=== PATIENT | female | born 2005 | race Caucasian/White ===

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

== ENCOUNTER 2024-01-09 14:11 | Observation (INO) | payer BC, MEDICAID, SELFPAY ==
[2024-01-09] VITALS (17 sets, daily range): BP systolic 97–166; BP diastolic 57–117; PULSE 80–165; RESP 7–25; TEMP 36.6–36.9; O2SAT 92–99; BMI 34.8
--- NOTE | 2024-01-09 14:36 | ECG_ITS ---
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 Measurements Intervals Streeter Rate: 145 P: 39 NE: 113 QRS: 52 QRSD: 92 T: 40 QT: 330 QTc: 514 Interpretive Statements SINUS TACHYCARDIA WITH SHORT NE INTERVAL, POSSIBLE ATRIAL FLUTTER ABNORMAL RHYTHM ECG Compared to ECG 12/18/2023 07:45:33 No significant changes Electronically Signed On 01-09-2024 20:05:16 PODIATRIST by Yon Talley M.D. [email or web address]
--- NOTE | 2024-01-09 14:36 | ED_ITS ---
HPI - Arrhythmia/Palpitations 2 General: Chief Complaint: Arrhythmia/Palpitations Stated Complaint: high heart rate Time Seen by Provider: 01/09/24 14:27 Source: patient Mode of arrival: ambulatory History of Present Illness: 19-year-old female who presents to the e mergency room with a rapid heart rate she has had SVT issues in the past been admitted from she also has diabetes mellitus hypertension. She is wearing a loop recorder at this time she woke up with her symptoms this morning no significant chest pain. She is on metoprolol she has been taking regularly has not missed any doses or change the dose recently MD complaint: rapid heart beat Onset (ago): hour(s) Duration: constant Arrhythmia history: SVT Associated symptoms: Deny anxiety, cough, diaphoresis, muscle cramps, nausea, paresthesias, pre-syncope, sense of impending doom, short of breath, syncope or vomiting Review of Systems 2 Const: Denies: diaphoresis Card: Reports: palpitations; Denies: chest pain, edema, swelling of feet/ankles, syncope or pre-syncope Resp: Denies: dyspnea GI: Denies: nausea or vomiting : Denies: dysuria, urinary frequency or urinary urgency Musc: Denies: muscle cramps Skin/Breast: Denies: rash Psych: Denies: anxiety PFSH ED 2 PFSH: Medical History (Updated 01/12/24 @ 16:17 by Feliciano Butler DO) Tachyarrhythmia Family history of porphyria Family history of [place] disease Irritable bowel syndrome Fatty liver Type 2 diabetes mellitus Surgical History History of appendectomy Family History Mother Colon cancer, Onset Age: 40 Other [place] disease Diabetes Hypertension Social History Smoking and tobacco/nicotine status: never used tobacco/nicotine Alcohol intake: never Substance/Drug Use: never Household members: significant other Physical Exam 2 Const: GENERAL APPEARANCE: cooperative and comfortable O RIENTATION/CONSCIOUSNESS: Yes awake, Yes oriented to person, Yes oriented to place and Yes oriented to time HENMT: COMMON NORMALS: normocephalic, atraumatic and hearing grossly normal bilaterally HEAD & SCALP: normocephalic and atraumatic Resp: COMMON NORMALS: normal respiratory effort, No retractions, No use of accessory muscles and clear to auscultation bilaterally AUSCULTATION: clear to auscultation bilaterally Cardio: COMMON NORMALS: regular rhythm and No murmurs present (Cardio) R ATE: tachycardic RHYTHM: regular rhythm GI: COMMON NORMALS: Soft to palpation and No hepatosplenomegaly present A USCULTATION: Yes normoactive bowel sounds PALPATION: Yes Soft to palpation, No Tenderness to palpation present (GI), No Guarding due to palpation present (GI) and Yes No hepatosplenomegaly present Extremity: COMMON NORMALS: normal to inspection, capillary refill normal, no clubbing, cyanosis or edema, no calf tenderness and no pedal edema Neuro: SENSORIUM/ORIENTATION: Yes oriented to person, Yes oriented to place and Yes oriented to time Skin: COMMON NORMALS: no rashes or lesions noted GENERAL SKIN EXAM: no rashes or lesions noted Course 2 Vital Signs: Vital signs: Vital Signs Temperature 98.5 F 01/10/24 07:00 Pulse Rate 78 01/10/24 12:35 Respiratory Rate 12 01/10/24 12:35 Blood Pressure 120/72 01/10/24 12:35 Pulse Oximetry 96 01/10/24 12:35 Oxygen Delivery Me thod Room Air 01/10/24 10:00 MDM - Arrhythmia/Palpitations Medical Decision Making Recurrent SVT. Patient did slow down for a bit and then rate increased again started on esmolol drip. The metoprolol did not last long. Labs and imaging completed discussed with hospitalist orders written Medical Records I reviewed the patient's medical records. Lab Data I reviewed the patient's lab results. 01/10/24 03:46 01/10/24 03:46 Laboratory Results WBC 9.15 10^3/uL (4.5-13.0) 01/09/24 14:57 RBC 5.45 10^6/uL (3.85-5.65) 01/09/24 14:57 Hgb 15.80 g/dL (12.4-14.8) H 01/09/24 14:57 Hct 45.3 % (36-47) 01/09/24 14:57 MCV 83.1 fl (85-98) L 01/09/24 14:57 MCH 29.0 pg (27-33) 01/09/24 14:57 MCHC 34.9 g/dL (30-55) 01/09/24 14:57 RDW 12.3 % (12.1-15.1) 01/09/24 14:57 Plt Count 354 10^3/cmm (157-399) 01/09/24 14:57 MPV 9.4 fL (7.4-10.4) 01/09/24 14:57 Neut % (Auto) 69.1 % 01/09/24 14:57 Lymph % (Auto) 21.9 % 01/09/24 14:57 [place] % (Auto) 6.8 % 01/09/24 14:57 Eos % (Auto) 1.0 % 01/09/24 14:57 Baso % (Auto) 0.8 % 01/09/24 14:57 Neut # (Auto) 6.33 10^3/uL (1.8-8.0) 01/09/24 14:57 Lymph # (Auto) 2.0 10^3/uL (1.5-6.5) 01/09/24 14:57 [place] # (Auto) 0.6 10^3/uL (0.2-0.9) 01/09/24 14:57 Eos # (Auto) 0.1 10^3/uL (0.0-0.8) 01/09/24 14:57 Baso # (Auto) 0.1 10^3/uL (0.0-0.1) 01/09/24 14:57 Nucleated RBC % (auto) 0 % 01/09/24 14:57 Nucleated RBCs # 0.0 /100WBC 01/09/24 14:57 Sodium 133 mmol/L (136-145) L 01/09/24 14:57 Potassium 3.7 mmol/L (3.5-5.1) 01/09/24 14:57 Chloride 99 mmol/L (98-107) 01/09/24 14:57 Carbon Dioxide 17 mmol/L (22-29) L 01/09/24 14:57 Anion Gap 20.7 (5-19) H 01/09/24 14:57 BUN 8 mg/dL (6-20) 01/09/24 14:57 Creatinine 0.4 mg/dL (0.5-0.9) L 01/09/24 14:57 GFR Calculation 203.5 mL/min (90-130) H 01/09/24 14:57 Glucose 412 mg/dL (65-115) H 01/09/24 14:57 POC Glucose 394 mg/dL (70-110) H 01/09/24 15:02 Calculated Osmolality 292 mOsm/kg (285-295) 01/09/24 14:57 Calcium 8.6 mg/dL (8.5-10.5) 01/09/24 14:57 Total Bilirubin 0.4 mg/dL (0.15-1.2) 01/09/24 14:57 AST 7 U/L (0-32) 01/09/24 14:57 ALT 12 U/L (0-33) 01/09/24 14:57 Alkaline Phosphatase 137 U/L (35-105) H 01/09/24 14:57 Total Protein 7.4 g/dL (6.6-8.7) 01/09/24 14:57 Albumin 4.0 g/dL (3.5-5.2) 01/09/24 14:57 Globulin 3.4 g/dL (1.3-4.6) 01/09/24 14:57 Vitamin B12 364 pg/mL (232-1245) 01/09/24 14:57 Serum Ketones Negative (Negative) 01/09/24 14:57 All radiology interpretation(s) finalized by discharge Discharge Plan Discharge Patient Disposition: Admitted As Inpatient Admit Provider: Ravi Sharma Clinical Impression: Tachyarrhythmia Condition: Stable Discharge Diet: Cardiac and Diabetic Discharge Activity: Resume usual activity and Increase activity as tolerated Coding Level of Care Code ED Incident Response Specialist for Candy Chatterjee
--- NOTE | 2024-01-09 14:36 | XR_ITS ---
WS: [id number] Examination: XR chest 1V portable [id number] Reason for Exam: dyspnea/cough Date: 01/09/2024 Comparison: December 16, 2023 Findings: The cardiomediastinal silhouette is within normal limits There is no congestion or edema. There is no pleural effusion. There is no dense consolidation. Monitoring devices projected over the upper mid chest. Impression: No acute lung process is seen.
[2024-01-09] MEDS: metoprolol tartrate 1 mg/1 mL SDV 5 mL 5 MG IVP (14:46)
[2024-01-09] MEDS: sodium chloride 0.9% 1,000 ML 999 ML IV (14:47)
[2024-01-09 15:06] LABS: Glucose Point of Care 394 mg/dL (70-110)
[2024-01-09 15:14] LABS: Basophils # 0.1 10^3/uL (0.0-0.1); Basophils % 0.8 %; Eosinophils # 0.1 10^3/uL (0.0-0.8); Hematocrit 45.3 % (36-47); Lymphocytes % 21.9 %; Mean Corpuscular HGB Conc 34.9 g/dL (30-55); Mean Corpuscular Volume 83.1 fl (85-98); Mean Platelet Volume 9.4 fL (7.4-10.4); Monocytes # 0.6 10^3/uL (0.2-0.9); Monocytes % 6.8 %; Neutrophils # 6.33 10^3/uL (1.8-8.0); Neutrophils % 69.1 %; Nucleated Red Blood Cells % 0 %; Platelet Count 354 10^3/cmm (157-399); Red Blood Count 5.45 10^6/uL (3.85-5.65); Red Cell Distribution Width 12.3 % (12.1-15.1); White Blood Count 9.15 10^3/uL (4.5-13.0)
[2024-01-09] MEDS: insulin regular-human 100 units/1 mL 17 UNIT IVP (15:27)
[2024-01-09 15:33] LABS: Ketone (Acetest) Serum Negative (Negative)
[2024-01-09 15:39] LABS: Alanine Aminotransferase 12 U/L (0-33); Alkaline Phosphatase 137 U/L (35-105); Anion Gap 20.7 (5-19); Aspartate Amino Transferase 7 U/L (0-32); Blood Urea Nitrogen 8 mg/dL (6-20); Calcium 8.6 mg/dL (8.5-10.5); Carbon Dioxide 17 mmol/L (22-29); Chloride 99 mmol/L (98-107); Creatinine Clr Calc Pharmacy 311.0972; Globulin 3.4 g/dL (1.3-4.6); Glomerular Filtration Rate 203.5 mL/min (90-130); Glucose 412 mg/dL (65-115); Osmolality Calculated 292 mOsm/kg (285-295); Potassium 3.7 mmol/L (3.5-5.1); Sodium 133 mmol/L (136-145); Total Bilirubin 0.4 mg/dL (0.15-1.2); Total Protein 7.4 g/dL (6.6-8.7)
[2024-01-09] MEDS: esmolol drip 2,500 MG/250 ML PREMIX 34.0200000000000031 MG IV (16:01)
[2024-01-09 16:50] LABS: Glucose Point of Care 309 mg/dL (70-110)
--- NOTE | 2024-01-09 17:05 | P.HP_ITS ---
Providers/Chief Complaint 2 Primary Care Provider: Patrica Baron NP Chief Complaint: high heart rate History of Present Illness Marbella Coronel is a 19 year old female with history of uncontrolled type 2 diabetes mellitus with last A1c of 12 in November 2023, last admission a month ago for tachycardia when she was found to have SVT and was discharged on event monitor presents back to the ER today because of heart rate not controlled by her Valsalva maneuver. Patient states she has an event monitor and since her last discharge she has had episodes of tachycardia twice or thrice which would usually be managed with Valsalva but today she was not able to control her heart rate for more than couple of hours so she presented to the ER. Patient states she has been feeling sick with mild nausea since last night. She takes Lantus to 40 units twice daily along with insulin as per sliding scale. Usually blood sugars well-controlled but have been erratic with some blood sugars running for more than 300 every week. She is supposed to have an appointment with schedule maker in [place] in January and with Dr. Talley from cardiology on February 08. In the ER patient received 5 mg of IV metoprolol without any help so she was started on esmolol drip. On examination she is laying in bed, tired appearing, dehydrated with heart rate running in 110 bpm. Blood pressure stable. Review of Systems 2 General: Reports: 10 or more systems reviewed and unremarkable except in HPI and below Const: Denies: fever(s), chills, body aches, change in appetite, change in weight, malaise, night sweats, diaphoresis, change in sleep pattern, daytime sleepiness or snoring Eyes: Denies: change in vision, blurry vision, photophobia, eye discomfort or eye discharge ENMT: Denies: throat pain, enlarged tonsils, hoarseness, mouth pain, oral sores, dry mouth, tinnitus, nasal congestion or post nasal drip Card: Denies: chest pain, palpitations, irregular heart rhythm, edema, swelling of feet/ankles, lightheadedness, syncope, pre-syncope, dyspnea on exertion, orthopnea, leg pain with exertion or acrocyanosis Resp: Denies: dyspnea, productive cough, non-productive cough, wheezing, stridor, pain on inspiration, change in phlegm color, hemoptysis or chest congestion GI: Denies: abdominal pain, nausea, vomiting, hematemesis, coffee ground emesis, dysphagia, heartburn, diarrhea, constipation, bloating, GI cramping, change in bowel habits, pain on defecation, hematochezia or melena : Denies: flank pain, dysuria, urinary frequency, urinary urgency, urinary hesitancy, nocturia or hematuria Musc: Denies: neck pain, back pain, extremity pain, joint pain, joint swelling, joint redness, joint stiffness or limited range of motion Neuro: Denies: headache(s), numbness in extremities, weakness in extremities, sensory changes, lack of coordination, difficulty walking, frequent falls, dizziness, vertigo, confusion, Slurred speech present, difficulty communicating thoughts or seizure-like activity Psych: Denies: anxiety, depression, mood swings, panic attacks, hopelessness or irritability Endo: Denies: polyuria, polydipsia, tired all the time, cold intolerance, excessive sweating, flushing or heat intolerance [place]/Lymph: Denies: easy bruising or easy bleeding All/Imm: Denies: tongue swelling, facial swelling or acute wheezing Medications/Allergies Home Medications Medication Instructions Recorded Confirmed Last Taken Type lancets (Comfort Lancets) #100 ea 08/22/22 01/09/24 Unknown Rx blood-glucose meter #1 ea 01/30/23 01/09/24 Unknown Rx pen needle, diabetic 33 gauge x #100 ea 04/24/23 01/09/24 Unknown Rx 5/32 (Easy Comfort Pen [place]) blood sugar diagnostic (Blood #50 ea 05/24/23 01/09/24 Unknown Rx Glucose Test strips) insulin aspart U-100 100 unit/mL See Rx Instructions .Route 06/03/23 01/09/24 01/09/24 Rx (3 mL) subcutaneous pen (Novolog .COMPLEX #15 mL FlexPen U-100 Insulin aspart) metoprolol succinate 25 mg 25 mg PO DAILY #30 tabs 12/18/23 01/09/24 01/09/24 Rx tablet,extended release 24 hr (Toprol XL) dicyclomine 20 mg tablet 20 mg PO QID 01/09/24 01/09/24 01/09/24 History insulin glargine 100 unit/mL (3 40 unit SUBCUT BID 01/09/24 01/09/24 01/09/24 History mL) subcutaneous pen (Lantus Solostar U-100 Insulin) metformin 500 mg tablet 500 mg PO BID 01/09/24 01/09/24 01/09/24 History Allergies Allergy/AdvReac Type Severity Reaction Status Date / Time No Known Allergies Allergy Verified 01/09/24 15:05 PFSH Acute 2 PFSH: Medical History (Updated 01/10/24 @ 10:43 by Ravi Sharma MD) Tachyarrhythmia Family history of porphyria Family history of [place] disease Irritable bowel syndrome Fatty liver Type 2 diabetes mellitus Surgical History History of appendectomy Family History Mother Colon cancer, Onset Age: 40 Other [place] disease Diabetes Hypertension Social History Smoking and tobacco/nicotine status: never used tobacco/nicotine Alcohol intake: never Substance/Drug Use: never Household members: significant other Vitals/I&O/Wt Last Vital Signs Temp 97.9 F 01/09/24 14:21 Pulse 107 H 01/09/24 16:21 Resp 17 01/09/24 14:21 BP 119/70 01/09/24 16:21 Pulse Ox 99 01/09/24 16:21 O2 Del Method Room Air 01/09/24 16:21 Weight last 48 hrs Weight 113.398 kg Physical Exam 2 Narrative: General: No acute distress, AO x3, anxious with a flat affect HEENT: PERRLA, pupils bilaterally equal and reactive Chest: Normal vesicular breath sounds, no added sounds, equal good air entry bilaterally CVS: S1-S2 regular, no murmurs, tachycardia, no gallops, no rubs Abdomen: Soft, nontender, no organomegaly, bowel sounds present Neuro: No focal deficits, no facial deformity, AO x3, power 5/5 in all limbs Data 01/10/24 03:46 01/10/24 03:46 A&P Assessment and plan (1) Tachyarrhythmia: History of SVT before. Currently concern for atrial tachycardia. Currently on esmolol drip. Increase home dose of metoprolol to 50 mg twice daily with first dose right now. Wean esmolol drip of keeping heart rate less than 100. Will consult cardiology. Patient will most likely need referral for electrophysiology. Admit to ICU. Monitor blood pressures. Start on IV fluids normal saline at 100 cc/h. (2) Type 2 diabetes mellitus: A1c recently 12. Patient believes her blood sugars are erratic and uncontrolled because of insulin resistance secondary to her control. Last control was in November. Increase insulin sliding scale to higher dose. Lantus 45 units twice daily. Carb consistent diet (3) BMI 35.0-35.9,adult: Plan Admit to ICU. Full code Carb consistent diet Protonix OPD prophylaxis Attestations 2 Medical Necessity Statement*: Requires admission for more than 2 midnights for management of tachyarrhythmia with concerns for atrial tachycardia on esmolol drip, uncontrolled type 2 diabetes mellitus Diagnoses Tachyarrhythmia R00.0 Type 2 diabetes mellitus E11.9 BMI 35.0-35.9,adult Z68.35
[2024-01-09] MEDS: metoprolol tartrate 25 mg Tablet 50 MG PO ×2 (17:47→21:01)
--- NOTE | 2024-01-09 18:20 | PC.NURSE ---
Pt admitted to ICU from ED. Monitor shows sinus rhythm. Esmolol drip infusing at 50mcg/kg/min. Pt offered tray, she refused. She asked if was ok if her SO brought her in [place] food. This nurse said it was ok as long as it followed consistent carb/diabetic diet., but not recommended. Reminded her of her elevated blood sugar, [place] food is full of carbohydrates and that More protein and vegetables would be better. She verbalized understanding.
[2024-01-09 19:06] LABS: Glucose Point of Care 295 mg/dL (70-110)
[2024-01-09 19:07] LABS: Vitamin B12 364 pg/mL (232-1245)
[2024-01-09] MEDS: sodium chloride 0.9% 1,000 ML 100 ML IV (19:11)
[2024-01-09] MEDS: acetaminophen 325 mg Tablet 650 MG PO (19:11)
[2024-01-09] MEDS: pantoprazole DR 40 mg Tablet PO (19:11)
[2024-01-09] MEDS: insulin lispro 100 unit/1 mL SUBCUT ×2 (19:15→21:00)
[2024-01-09] MEDS: enoxaparin 40 mg/0.4 mL Syringe SUBCUT (19:16)
[2024-01-09] MEDS: insulin glargine 100 units/1 mL 40 UNIT SUBCUT (19:55)
[2024-01-09 20:09] LABS: Amphetamines Screen Urine Negative (Negative); Barbiturates Screen Urine Negative (Negative); Benzodiazepines Screen Urine Negative (Negative); Cocaine Screen Urine Negative (Negative); Opiate Screen Urine Negative (Negative); PCP Screen Urine Negative (Negative); THC Screen Urine Negative (Negative)
[2024-01-09 20:11] LABS: Add Urine Microscopic? YES; Bilirubin Urine Neg (Negative); Blood Urine 3+ (Negative); Glucose Urine UA 4+ (Normal); Ketones Urine 2+ (Negative); Leukocyte Esterase Urine Trace (Negative); Nitrate Urine Negative (Negative); Protein Urine 1+ (Negative); Urine Appearance Cloudy (CLEAR); Urine Color Dark Yellow (Yellow); Urobilinogen Urine Norm (Negative); pH Urine 5 (5-7)
[2024-01-09 20:14] LABS: Add Urine Culture? Yes; Bacteria Urine TRACE /hpf; RBC Urine >100 /hpf (0-2)
[2024-01-09 21:01] LABS: Glucose Point of Care 400 mg/dL (70-110)
--- NOTE | 2024-01-09 21:36 | PC.NURSE ---
monitoring and evaluation advisor shows SR with rate in the 80's. Esmolol paused.
[2024-01-10] VITALS (11 sets, daily range): BP systolic 94–123; BP diastolic 48–88; PULSE 78–101; RESP 12–22; TEMP 36.8–36.9; O2SAT 93–97
[2024-01-10 03:51] LABS: Basophils # 0.1 10^3/uL (0.0-0.1); Basophils % 0.6 %; Eosinophils # 0.2 10^3/uL (0.0-0.8); Eosinophils % 2.3 %; Hematocrit 42.2 % (36-47); Lymphocytes # 3.9 10^3/uL (1.5-6.5); Lymphocytes % 37.8 %; Mean Corpuscular HGB Conc 33.4 g/dL (30-55); Mean Corpuscular Hemoglobin 28.5 pg (27-33); Mean Corpuscular Volume 85.4 fl (85-98); Mean Platelet Volume 9.2 fL (7.4-10.4); Monocytes # 0.7 10^3/uL (0.2-0.9); Monocytes % 6.9 %; Neutrophils # 5.33 10^3/uL (1.8-8.0); Neutrophils % 52.2 %; Nucleated Red Blood Cells % 0 %; Platelet Count 301 10^3/cmm (157-399); Red Blood Count 4.94 10^6/uL (3.85-5.65); Red Cell Distribution Width 12.5 % (12.1-15.1); White Blood Count 10.23 10^3/uL (4.5-13.0)
[2024-01-10 04:16] LABS: Alanine Aminotransferase 10 U/L (0-33); Albumin Level 3.5 g/dL (3.5-5.2); Alkaline Phosphatase 97 U/L (35-105); Anion Gap 15.7 (5-19); Aspartate Amino Transferase 7 U/L (0-32); Blood Urea Nitrogen 13 mg/dL (6-20); Calcium 8.4 mg/dL (8.5-10.5); Carbon Dioxide 22 mmol/L (22-29); Chloride 103 mmol/L (98-107); Creatinine Clr Calc Pharmacy 310.9045; Globulin 2.7 g/dL (1.3-4.6); Glomerular Filtration Rate 203.5 mL/min (90-130); Glucose 265 mg/dL (65-115); Magnesium 1.8 mg/dL (1.7-2.3); Osmolality Calculated 293 mOsm/kg (285-295); Phosphorus 3.3 mg/dL (2.5-4.5); Potassium 3.7 mmol/L (3.5-5.1); Sodium 137 mmol/L (136-145); Total Bilirubin 0.4 mg/dL (0.15-1.2); Total Protein 6.2 g/dL (6.6-8.7)
[2024-01-10] MEDS: sodium chloride 0.9% 1,000 ML 100 ML IV (04:35)
--- NOTE | 2024-01-10 08:02 | P.CONIM_ITS ---
Providers/Reason For Consult 2 Consulting Physician/Specialty*: Ross Vazquez MD/ Cardiology Reason for Consult*: SVT Requesting Physician: Dr Sharma Attending Physician: Ravi Sharma MD Primary Care Provider: Patrica Baron NP History of Present Illness History of Present Illness Marbella Coronel is a 19 year old female with past medical history of diabetes who was seen last month in the hospital for SVT. She went home on metoprolol. Came significant palpitations. EKG is consistent with possible atrial tachycardia. Heart rate is controlled with beta-blockers. Review of Systems 2 Const: Denies: diaphoresis Card: Reports: palpitations; Denies: chest pain, edema, swelling of feet/ankles, syncope or pre-syncope Resp: Denies: dyspnea GI: Denies: nausea or vomiting : Denies: dysuria, urinary frequency or urinary urgency Musc: Denies: muscle cramps Skin/Breast: Denies: rash Psych: Denies: anxiety Medications/Allergies Home Medications Medication Instructions Recorded Confirmed Last Taken Type lancets (Comfort Lancets) #100 ea 08/22/22 01/13/24 Unknown Rx blood-glucose meter #1 ea 01/30/23 01/13/24 Unknown Rx pen needle, diabetic 33 gauge x #100 ea 04/24/23 01/13/24 Unknown Rx 5/32 (Easy Comfort Pen [place]) blood sugar diagnostic (Blood #50 ea 05/24/23 01/13/24 Unknown Rx Glucose Test strips) dicyclomine 20 mg tablet 20 mg PO QID 01/09/24 01/13/24 01/09/24 History metformin 500 mg tablet 500 mg PO BID 01/09/24 01/13/24 01/09/24 History insulin aspart U-100 100 unit/mL See Rx Instructions .Route 01/10/24 01/13/24 01/09/24 Rx (3 mL) subcutaneous pen (Novolog .COMPLEX #15 mL FlexPen U-100 Insulin aspart) insulin glargine 100 unit/mL (3 45 unit (0.45 mL) SUBCUT BID #15 mL 01/10/24 01/13/24 01/09/24 Rx mL) subcutaneous pen (Lantus Solostar U-100 Insulin) metoprolol tartrate 25 mg tablet 50 mg PO DAILY PRN Heart rate more 01/13/24 Unknown History than 110 bpm metoprolol tartrate 75 mg tablet 75 mg PO BID #60 tabs 01/13/24 01/13/24 Unknown Rx Allergies Allergy/AdvReac Type Severity Reaction Status Date / Time No Known Allergies Allergy Verified 01/13/24 14:29 Current Medications Generic Name Dose Route Start Last Admin Trade Name Freq PRN Reason Stop Dose Admin Acetaminophen 650 mg 01/09/24 18:14 01/09/24 19:11 Acetaminophen 325 Mg Tablet PO 650 mg Q6H PRN Administration Mild/Mod Pain Or Temp >/= 101 Enoxaparin Sodium 40 mg 01/09/24 18:14 01/09/24 19:16 Enoxaparin 40 Mg/0.4 Ml Syringe SUBCUT 40 mg Q24H CHIVO Administration Esmolol HCl 2,500 mg in 250 mls @ 0 mls/hr 01/09/24 16:00 01/09/24 21:34 Brevibloc Drip IV 0 mcg/kg/min .Q0M CHIVO 0 mls/hr Titration Protocol Per Protocol Sodium Chloride 1,000 mls @ 100 mls/hr 01/09/24 18:14 01/10/24 04:35 Sodium Chloride 0.9% IV 100 mls/hr .Q10H CHIVO Administration Insulin Glargine 40 unit 01/09/24 19:00 01/09/24 19:55 Insulin Glargine 100 Units/1 Ml SUBCUT 40 unit BID CHIVO Administration Insulin Human Lispro 0 unit 01/09/24 18:14 01/09/24 21:00 Insulin Lispro 100 Unit/1 Ml SUBCUT 12 unit WM&BEDTIME CHIVO Administration Protocol Metoprolol Tartrate 50 mg 01/09/24 17:05 01/09/24 21:01 Metoprolol Tartrate 25 Mg Tablet PO 50 mg BID@0900,2100 CHIVO Administration Pantoprazole Sodium 40 mg 01/09/24 18:14 01/09/24 19:[address] 40 Mg Tablet PO 40 mg DAILY CHIVO Administration PFSH Acute 2 PFSH: Medical History Tachyarrhythmia Family history of porphyria Family history of [place] disease Irritable bowel syndrome Fatty liver Type 2 diabetes mellitus Surgical History History of appendectomy Family History Mother Colon cancer, Onset Age: 40 Other [place] disease Diabetes Hypertension Social History Smoking and tobacco/nicotine status: never used tobacco/nicotine Alcohol intake: never Substance/Drug Use: never Household members: significant other Female Reproductive History: Date of last menstrual period: 01/05/24 Vitals/I&O/Wt Last Vital Signs Temp 98.2 F 01/10/24 04:00 Pulse 79 01/10/24 05:39 Resp 21 H 01/10/24 04:00 BP 101/49 01/10/24 04:00 Pulse Ox 94 01/10/24 04:00 O2 Del Method Room Air 01/10/24 04:00 01/09/24 01/10/24 01/10/24 22:59 06:59 14:59 Intake Total 398.554 / 771.294 6718 / 1738.554 Balance 398.554 / 894.671 0108 / 1738.554 Weight last 48 hrs Weight 256 lb Weight 249 lb 11.2 oz Weight 250 lb Physical Exam 2 Narrative: GENERAL: Patient is alert, awake and oriented x3. [] NECK: No jugular vein distension. [] HEENT: No cyanosis. No icterus. No pallor. [] HEART: Regular S1 and S2. No murmur, rub or gallop. [] LUNGS: Clear to auscultate bilaterally. [] CENTRAL NERVOUS SYSTEM: Grossly nonfocal. [] EXTREMITIES: Lower extremities with 1+ edema bilaterally Data 01/10/24 03:46 01/10/24 03:46 A&P Assessment and plan (1) Tachyarrhythmia: (2) Hypertension, uncontrolled: (3) Type 2 diabetes mellitus: Plan Patient had documented SVT before. EKG at this time is consistent with atrial tachycardia. Uptitrate beta-blockers. Continue event monitoring. Outpatient cardiology follow-up. Will refer to electrophysiology as outpatient for possible EP study and ablation procedure as has been having recurrent events Recent echo had showed normal LV systolic function Thank you for involving us with care of this patient. We will continue to follow. Please call with questions. Consult Attestations 2 Medical Necessity Statement: Care expected to cross 2 midnights. Coding Level of Care Code Acute Code for g Fwd Diagnoses Tachyarrhythmia R00.0 Hypertension, uncontrolled I10 Type 2 diabetes mellitus E11.9
--- NOTE | 2024-01-10 08:20 | PC.NURSE ---
Pt did not want the breakfast offered. She ate some of the ruiz. She called her S.O. to bring her something else.
[2024-01-10 08:24] LABS: Glucose Point of Care 320 mg/dL (70-110)
[2024-01-10] MEDS: insulin glargine 100 units/1 mL 40 UNIT SUBCUT (08:29)
[2024-01-10] MEDS: insulin lispro 100 unit/1 mL SUBCUT (08:30)
[2024-01-10] MEDS: pantoprazole DR 40 mg Tablet PO (08:32)
[2024-01-10] MEDS: metoprolol tartrate 25 mg Tablet 50 MG PO (08:32)
--- NOTE | 2024-01-10 10:27 | PM.DCS ---
Discharge Providers Date of Admission: 01/09/24 16:45 Date of Discharge: January 10, 2024 Attending Provider at Admission: Ravi Sharma MD Attending Provider at Discharge: Ravi Sharma MD Primary Care Provider: Patrica Baron NP Reason for Visit Reason for Visit: high heart rate Hospital Course Hospital Course 19-year-old female with history of uncontrolled type 2 diabetes mellitus with last A1c of 12 in November 2023, last admission a month ago for tachycardia when she was found to have SVT and was discharged on event monitor presents back to the ER today because of heart rate not controlled by her Valsalva maneuver. Patient states she has an event monitor and since her last discharge she has had episodes of tachycardia twice or thrice which would usually be managed with Valsalva but today she was not able to control her heart rate for more than couple of hours so she presented to the ER. Patient states she has been feeling sick with mild nausea since last night. She takes Lantus to 40 units twice daily along with insulin as per sliding scale. Usually blood sugars well-controlled but have been erratic with some blood sugars running for more than 300 every week. She is supposed to have an appointment with catering convention services manager in [place] in January and with Dr. Talley from cardiology on February 08. In the ER patient received 5 mg of IV metoprolol without any help so she was started on esmolol drip. On examination she is laying in bed, tired appearing, dehydrated with heart rate running in 110 bpm. Blood pressure stable. She was admitted to the hospital for further evaluation and management. She was given an extra dose of metoprolol after which esmolol drip could be weaned off. EKG from the ER was concerning for atrial tachycardia at this time. Her heart rate remained stable overnight. Patient's blood sugar was erratic for which she was given an higher dose of Lantus and a higher dose of insulin sliding scale. She was also visited by dietitian regarding diabetic diet. Cardiology was consulted. She has been discharged in hemodynamically stable condition on higher dose of metoprolol with metoprolol at a lower dose as needed along with adjusted dose of insulin and a higher insulin sliding scale. She is asked to follow-up with nurse practitioner from cardiology/Zoe Gibbons next week for referral to patient services representative. She is asked to keep a blood sugar diary and follow-up with her catering convention services manager next month. Physical Exam Narrative: General: No acute distress, AO x3, flat effect HEENT: PERRLA, pupils bilaterally equal and reactive Chest: Normal vesicular breath sounds, no added sounds, equal good air entry bilaterally CVS: S1-S2 regular, no murmurs, no tachycardia, no gallops, no rubs Abdomen: Soft, nontender, no organomegaly, bowel sounds present Neuro: No focal deficits, no facial deformity, AO x3, power 5/5 in all limbs Discharge Data Studies Completed and Pending Completed Studies During Hospitalization Category Date Time Status XR chest 1V portable [id number] Stat Exams 01/09/24 14:36 Completed Pending at discharge Category Date Time Status Urine Culture Routine Lab 01/09/24 19:45 Received Laboratory Results WBC 10.23 10^3/uL (4.5-13.0) 01/10/24 03:46 RBC 4.94 10^6/uL (3.85-5.65) 01/10/24 03:46 Hgb 14.10 g/dL (12.4-14.8) 01/10/24 03:46 Hct 42.2 % (36-47) 01/10/24 03:46 MCV 85.4 fl (85-98) 01/10/24 03:46 MCH 28.5 pg (27-33) 01/10/24 03:46 MCHC 33.4 g/dL (30-55) 01/10/24 03:46 RDW 12.5 % (12.1-15.1) 01/10/24 03:46 Plt Count 301 10^3/cmm (157-399) 01/10/24 03:46 MPV 9.2 fL (7.4-10.4) 01/10/24 03:46 Neut % (Auto) 52.2 % 01/10/24 03:46 Lymph % (Auto) 37.8 % 01/10/24 03:46 [place] % (Auto) 6.9 % 01/10/24 03:46 Eos % (Auto) 2.3 % 01/10/24 03:46 Baso % (Auto) 0.6 % 01/10/24 03:46 Neut # (Auto) 5.33 10^3/uL (1.8-8.0) 01/10/24 03:46 Lymph # (Auto) 3.9 10^3/uL (1.5-6.5) 01/10/24 03:46 [place] # (Auto) 0.7 10^3/uL (0.2-0.9) 01/10/24 03:46 Eos # (Auto) 0.2 10^3/uL (0.0-0.8) 01/10/24 03:46 Baso # (Auto) 0.1 10^3/uL (0.0-0.1) 01/10/24 03:46 Nucleated RBC % (auto) 0 % 01/10/24 03:46 Nucleated RBCs # 0.0 /100WBC 01/10/24 03:46 Sodium 137 mmol/L (136-145) 01/10/24 03:46 Potassium 3.7 mmol/L (3.5-5.1) 01/10/24 03:46 Chloride 103 mmol/L (98-107) 01/10/24 03:46 Carbon Dioxide 22 mmol/L (22-29) 01/10/24 03:46 Anion Gap 15.7 (5-19) 01/10/24 03:46 BUN 13 mg/dL (6-20) 01/10/24 03:46 Creatinine 0.4 mg/dL (0.5-0.9) L 01/10/24 03:46 GFR Calculation 203.5 mL/min (90-130) H 01/10/24 03:46 Glucose 265 mg/dL (65-115) H 01/10/24 03:46 POC Glucose 320 mg/dL (70-110) H 01/10/24 08:06 Calculated Osmolality 293 mOsm/kg (285-295) 01/10/24 03:46 Calcium 8.4 mg/dL (8.5-10.5) L 01/10/24 03:46 Phosphorus 3.3 mg/dL (2.5-4.5) 01/10/24 03:46 Magnesium 1.8 mg/dL (1.7-2.3) 01/10/24 03:46 Total Bilirubin 0.4 mg/dL (0.15-1.2) 01/10/24 03:46 AST 7 U/L (0-32) 01/10/24 03:46 ALT 10 U/L (0-33) 01/10/24 03:46 Alkaline Phosphatase 97 U/L (35-105) 01/10/24 03:46 Total Protein 6.2 g/dL (6.6-8.7) L 01/10/24 03:46 Albumin 3.5 g/dL (3.5-5.2) 01/10/24 03:46 Globulin 2.7 g/dL (1.3-4.6) 01/10/24 03:46 Vitamin B12 364 pg/mL (232-1245) 01/09/24 14:57 Urine Color Dark yellow (Yellow) 01/09/24 19:45 Urine Appearance Cloudy (CLEAR) A 01/09/24 19:45 Urine pH 5 (5-7) 01/09/24 19:45 Ur Specific [place] 1.030 (1.005-1.030) 01/09/24 19:45 Urine Protein 1+ (Negative) H 01/09/24 19:45 Urine Glucose (UA) 4+ (Normal) H 01/09/24 19:45 Urine Ketones 2+ (Negative) H 01/09/24 19:45 Urine Blood 3+ (Negative) H 01/09/24 19:45 Urine Nitrate Negative (Negative) 01/09/24 19:45 Urine Bilirubin Neg (Negative) 01/09/24 19:45 Urine Urobilinogen Norm mg/dL (Negative) 01/09/24 19:45 Ur Leukocyte Esterase Trace (Negative) H 01/09/24 19:45 Urine RBC >100 /hpf (0-2) H 01/09/24 19:45 Urine WBC 5-10 /hpf (0-5) H 01/09/24 19:45 Ur Squamous Epith Cells 10-15 /hpf (0-5) H 01/09/24 19:45 Amorphous Sediment Not Reportable 01/09/24 19:45 Urine Bacteria Trace /hpf (NONE) 01/09/24 19:45 Urine Mucus None /hpf 01/09/24 19:45 Urine Opiates Screen Negative ng/mL (Negative) 01/09/24 19:45 Ur Barbiturates Screen Negative ng/mL (Negative) 01/09/24 19:45 Ur Phencyclidine Scrn Negative ng/mL (Negative) 01/09/24 19:45 Ur Amphetamines Screen Negative ng/mL (Negative) 01/09/24 19:45 U Benzodiazepines Scrn Negative ng/mL (Negative) 01/09/24 19:45 Urine Cocaine Screen Negative ng/mL (Negative) 01/09/24 19:45 U Marijuana (THC) Screen Negative ng/mL (Negative) 01/09/24 19:45 Serum Ketones Negative (Negative) 01/09/24 14:57 Vitals Last Vital Signs Temp 98.2 F 01/10/24 04:00 Pulse 79 01/10/24 05:39 Resp 21 H 01/10/24 04:00 BP 101/49 01/10/24 04:00 Pulse Ox 94 01/10/24 04:00 O2 Del Method Room Air 01/10/24 04:00 Discharge Plan Discharge Patient Disposition: Home Condition: Stable Prescriptions: New metoprolol tartrate 50 mg tablet 50 mg PO Q12H Qty: 60 0RF metoprolol tartrate 25 mg tablet 25 mg PO DAILY PRN (Reason: Heart rate more than 110 bpm) Qty: 14 0RF Continued (DME) blood-glucose meter Misc See Rx Instructions .Route Qty: 1 0RF Rx Instructions: As directed testing once daily (DME) pen needle, diabetic [Easy Comfort Pen [place]] 33 gauge x 5/32 needle See Rx Instructions .Route Qty: 100 1RF Rx Instructions: As directed (DME) lancets [Comfort Lancets] Misc See Rx Instructions .Route Qty: 100 1RF Rx Instructions: As directed testing once daily (DME) Blood Glucose Test Strip See Rx Instructions .Route Qty: 50 5RF Rx Instructions: testing 4 times daily dicyclomine 20 mg tablet 20 mg PO QID metformin 500 mg tablet 500 mg PO BID Novolog FlexPen U-100 Insulin 100 unit/mL (3 mL) insulin pen See Rx Instructions .ROUTE .COMPLEX Qty: 15 3RF Rx Instructions: sliding scale with meals Changed Lantus Solostar U-100 Insulin 100 unit/mL (3 mL) insulin pen 45 unit SUBCUT BID Qty: 15 0RF Discontinued metoprolol succinate [Toprol XL] 25 mg tablet extended release 24 hr 25 mg PO DAILY Qty: 30 0RF Discharge Orders: Discharge Order (Routine); Ordered 01/10/24 Ordered By: Ravi Sharma Referrals: Patrica Baron NP [Primary Care Provider] - Zoe Gibbons FNP [Nurse Practitioner] - 4-7 days Discharge Diet: Cardiac and Diabetic Discharge Activity: Resume usual activity and Increase activity as tolerated Patient Instructions: Opioid Safety Activity Restrictions/Additional Instructions: Insulin sliding scale BS 140-180--- 5 units 181-240--- 8 Units 241-300--- 12 units 301- 350--- 15 units 351- 400--- 18 units Please take metoprolol 50 mg twice daily. If your heart rate remains more than 100 bpm even after doing your Valsalva maneuver you can take an extra 25 mg of metoprolol 1 time a day. If your heart rate does not settle down 1 hour after taking metoprolol or if you have dizziness or any difficulty in breathing or chest pain please come to the ER. Discharge Attestations Time Spent in Discharge Care*: greater than 30 min Specific Discharge Activities: educating patient, educating and/or supporting family/caregiver, discussing with pcp/other providers, discussing with pillowcase cleaner/social workers/dc planners, documenting/other paperwork and evaluating patient/reviewing data Status at Discharge: Cognitive status at discharge: cognitively intact, Behavioral status at discharge: cooperative, Functional status at discharge: independent ambulation, Overall status at discharge: patient is back to baseline Quality Metrics Clinical Quality Measures [ No reported AMI, CVA or VTE this stay] Coding Level of Care Code 37923 Total time (in minutes) for Discharge: 60
[2024-01-10] MEDS: acetaminophen 325 mg Tablet 650 MG PO (11:56)
[2024-01-10 12:04] LABS: Glucose Point of Care 273 mg/dL (70-110)
== END 2024-01-10 12:40 | disposition home or self-care (01) ==
LOC: ER 14:36 → ICU 17:57
PROVIDERS: Admitting Provider Student in an Organized Health Care Education/Training Program; Emergency Provider Family Medicine; PCP Nurse Practitioner Family; Visit Provider Student in an Organized Health Care Education/Training Program
DX: R00.0 Tachycardia, unspecified (principal); E11.9 Type 2 diabetes mellitus without complications; Z79.4 Long term (current) use of insulin
CPT/HCPCS: 36415; 36416; 36592; 71045; 80053; 80306; 81001; 82009; 82607; 82962; 83735; 84100; 85025; 87086; 93005; 96365; 96366; 96372; 96375; 96376; 99285; G0378; J1650; J1815; J3490; J7030

== ENCOUNTER 2024-02-09 09:02 | Emergency (ER) | payer BC, MEDICAID, SELFPAY ==
[2024-02-09 09:19] VITALS: BP 152/93; PULSE 146; TEMP 36.8; O2SAT 98; BMI 34.8
[2024-02-09 09:31] VITALS: BP 152/93; PULSE 135; RESP 16; O2SAT 95
[2024-02-09 09:39] LABS: Basophils # 0.1 10^3/uL (0.0-0.1); Basophils % 0.7 %; Eosinophils # 0.3 10^3/uL (0.0-0.8); Eosinophils % 2.3 %; Lymphocytes # 4.8 10^3/uL (1.5-6.5); Lymphocytes % 31.8 %; Mean Corpuscular HGB Conc 33.8 g/dL (30-55); Mean Corpuscular Hemoglobin 28.6 pg (27-33); Mean Corpuscular Volume 84.7 fl (85-98); Monocytes # 0.9 10^3/uL (0.2-0.9); Monocytes % 6.2 %; Neutrophils # 8.84 10^3/uL (1.8-8.0); Neutrophils % 58.5 %; Nucleated Red Blood Cells % 0 %; Platelet Count 368 10^3/cmm (157-399); Red Blood Count 5.55 10^6/uL (3.85-5.65); Red Cell Distribution Width 12.4 % (12.1-15.1); White Blood Count 15.09 10^3/uL (4.5-13.0)
[2024-02-09 09:55] LABS: Alanine Aminotransferase 16 U/L (0-33); Albumin Level 4.1 g/dL (3.5-5.2); Alkaline Phosphatase 124 U/L (35-105); Blood Urea Nitrogen 13 mg/dL (6-20); Calcium 9.4 mg/dL (8.5-10.5); Carbon Dioxide 20 mmol/L (22-29); Chloride 101 mmol/L (98-107); Creatinine Clr Calc Pharmacy 248.8777; Globulin 3.6 g/dL (1.3-4.6); Glomerular Filtration Rate 157.3 mL/min (90-130); Glucose 128 mg/dL (65-115); Osmolality Calculated 282 mOsm/kg (285-295); Sodium 135 mmol/L (136-145); Total Bilirubin 0.4 mg/dL (0.15-1.2); Total Protein 7.7 g/dL (6.6-8.7)
[2024-02-09] MEDS: ketorolac 30 mg/mL INJ 15 MG IVP (09:58)
[2024-02-09 10:01] LABS: HCG Qualitative Urine. Negative (Negative)
--- NOTE | 2024-02-09 10:03 | ECG_ITS ---
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 Measurements Intervals [place] Rate: 125 P: 40 [place]: 157 QRS: 19 QRSD: 81 T: 21 QT: 319 QTc: 461 Interpretive Statements SINUS TACHYCARDIA Compared to ECG 01/09/2024 14:33:21 No significant changes Electronically Signed On 02-09-2024 23:53:00 CDT by Ross Vazquez M.D. [id number] f
[2024-02-09 10:04] VITALS: BP 142/86; PULSE 129; RESP 16; O2SAT 95
[2024-02-09 10:13] LABS: Aspartate Amino Transferase 15 U/L (0-32)
[2024-02-09 10:16] LABS: Amphetamines Screen Urine Negative (Negative); Barbiturates Screen Urine Negative (Negative); Benzodiazepines Screen Urine Negative (Negative); Cocaine Screen Urine Negative (Negative); Opiate Screen Urine Negative (Negative); PCP Screen Urine Negative (Negative); THC Screen Urine Negative (Negative)
[2024-02-09 10:39] LABS: Protein Urine 1+ (Negative); Specific Gravity, Urine 1.025 (1.005-1.030); Urine Appearance Hazy (CLEAR); Urine Color Straw (Yellow); pH Urine 5 (5-7)
[2024-02-09 10:43] LABS: Add Urine Microscopic? YES; Bilirubin Urine Neg (Negative); Blood Urine Neg (Negative); Glucose Urine UA Norm (Normal); Ketones Urine 1+ (Negative); Leukocyte Esterase Urine Trace (Negative); Nitrate Urine Negative (Negative); Urobilinogen Urine Norm (Negative)
[2024-02-09 10:44] LABS: Add Urine Culture? No; Bacteria Urine 1+ /hpf; WBC Urine 0-4 /hpf (0-5)
--- NOTE | 2024-02-09 10:44 | PC.PHAR ---
pt states she takes care of her own medications-pt states she takes metoprolol tartrate 75mg bid written 01/13/24 ext doesnt show when last filled-pt states she also has a metoprolol tartrate 25mg daily prn for heart rate more than 110 bpm-pt states she no longer takes the depo shot ext shows last filled 10/20/23 90d/s or buspar 10mg tid filled 12/20/23 30d/s
--- NOTE | 2024-02-09 11:23 | USR_ITS ---
PROCEDURE INFORMATION: Exam: US Pelvis Complete, Transabdominal and US Pelvis, Transvaginal Exam date and time: 02/09/2024 12:11 PM Age: 19 years old Clinical indication: Pelvic pain; Additional info: Right pelvic pain 3 days, HX of intermittent torsion/cysts TECHNIQUE: Imaging protocol: Real-time complete transabdominal and transvaginal pelvic ultrasound with image documentation. Transvaginal imaging was used for better evaluation of the endometrium, adnexa, and/or cervix. COMPARISON: CT abdomen pelvis w con* [id number] 05/21/2023 9:28 PM FINDINGS: The uterus measures 2.9 x 4 x 4 x 7.8 cm. The endometrial stripe measures 0.6 cm in thickness. The right ovary measures 2.0 x 2.6 x 2.2 cm. There is a hypoechoic lesion in the right ovary with low-level internal echoes. This measures 1.8 x 1.6 x 1.7 cm. This could represent an endometrioma. The left ovary is not visualized. Doppler interrogation of the right ovary reveals arterial and venous blood flow, bilaterally. There is trace free pelvic fluid. The visualized bladder is not well visualized. US/US pelv w/transvag [id number] IMPRESSION: 1. No evidence of right ovarian torsion. 2. The left ovary is not visualized by transabdominal or transvaginal technique. 3. Lesion in the right ovary that may represent an endometrioma. Recommend follow-up pelvic ultrasound in 6 weeks to reassess. 4. Trace free pelvic fluid.
--- NOTE | 2024-02-09 11:23 | W.ED.ABDPA2 ---
HPI - Abdominal Pain General: Chief Complaint: Abdominal Pain Stated Complaint: right side pelvic pain Time Seen by Provider: 02/09/24 09:34 History of Present Illness: 19-year-old female with a relevant past medical history of appendectomy, ovarian cysts, partial ovarian torsion, insulin-dependent diabetes, SVT, inappropriate sinus tachycardia who presents emergency department with 3 days of right pelvic pain. She reports it seems to come on fairly quickly over the course of the day and then has gotten gradually worse since then. She has a constant 5-6 out of 10 pain that seem to escalate today which brought her in. Patient points to her low right pelvis as a source of pain. No radiation anywhere else. No flank pain. Patient denies any vaginal discharge, vaginal pain, concern for STIs, dysuria, hematuria, urinary frequency. Her last vaginal bleeding was spotting January 07. Her last Depo shot was September 2023. She has a history of very irregular periods. She had to get off of the Depo shot due to blood sugar control issues. Patient reports she has IBS and she normally has somewhat runny to diarrhea stools. This is normal for her. No change in bowel habits. No other abdominal pain. No vomiting. Associated Symptoms: Denies chills, dysuria, fever(s), syncope and vomiting Review of Systems General: Reports: 10 or more systems reviewed and unremarkable except in HPI and below Const: Denies: fever(s), chills or body aches Eyes: Denies: change in vision ENMT: Denies: throat pain Card: Denies: chest pain, edema or syncope Resp: Denies: dyspnea or productive cough GI: Denies: vomiting : Denies: flank pain, dysuria or urinary frequency Musc: Denies: neck pain, back pain, extremity pain or extremity swelling Skin/Breast: Denies: rash or erythema Neuro: Denies: headache(s), numbness in extremities, weakness in extremities, lack of coordination or difficulty walking PFSH ED PFSH: Medical History Tachyarrhythmia Family history of porphyria Family history of [place] disease Irritable bowel syndrome Fatty liver Type 2 diabetes mellitus Surgical History History of appendectomy Family History Mother Colon cancer, Onset Age: 40 Other Jin disease Diabetes Hypertension Social History Smoking and tobacco/nicotine status: never used tobacco/nicotine Alcohol intake: never Substance/Drug Use: never Household members: significant other Physical Exam Narrative: EXAM NARRATIVE: Obese, moderate distress holding the right lower quadrant in a seated position, tachycardic. Const: COMMON NORMALS: no limitations, alert and well nourished EXAM LIMITATIONS: no altered mental status HENMT: COMMON NORMALS: normocephalic, atraumatic and external ears normal HEAD & SCALP: normocephalic and atraumatic EXTERNAL EAR: Yes external ears normal MOUTH: no muffled voice Eye: COMMON NORMALS: EOMs intact bilaterally, conjunctivae normal and no scleral icterus CONJUNCTIVA: Yes conjunctivae normal Neck/C-Spine: COMMON NORMALS: no JVD GENERAL: Yes normal visual inspection and Yes trachea midline Resp: COMMON NORMALS: normal respiratory effort, No use of accessory muscles and clear to auscultation bilaterally AUSCULTATION: clear to auscultation bilaterally Cardio: COMMON NORMALS: no JVD and regular rhythm RATE: tachycardic RHYTHM: regular rhythm GI: COMMON NORMALS: Soft to palpation PALPATION: Yes Soft to palpation, Yes Tenderness to palpation present (GI) Details: other (Deep right pelvis) and No Guarding due to palpation present (GI) Extremity: COMMON NORMALS: normal to inspection Neuro: COMMON NORMALS: moves all extremities, no focal motor deficits and no sensory deficits noted SENSORIUM/ORIENTATION: Yes alert SPEECH: speech normal Psych: COMMON NORMALS: mental status grossly normal, Normal thought process present, cooperative, normal affect and speech normal SPEECH: Yes normal speech THOUGHT PROCESS: Normal thought process present Skin: COMMON NORMALS: no rashes or lesions noted, turgor normal and no jaundice GENERAL SKIN EXAM: no rashes or lesions noted and turgor normal Course Vital Signs: Vital signs: Vital Signs Temperature 98.2 F 02/09/24 09:19 Pulse Rate 113 H 02/09/24 11:37 Respiratory Rate 16 02/09/24 10:04 Blood Pressure 146/86 02/09/24 11:37 Pulse Oximetry 94 02/09/24 11:37 Oxygen Delivery Me thod Room Air 02/09/24 11:37 MDM - Abdominal Pain Medical Decision Making Differential diagnosis includes ovarian cyst rupture, kidney stone, intermittent or partial ovarian torsion, ectopic , potentially a DVT in the pelvic pain, pelvic congestion syndrome, UTI among others.. Patient reports she is not at all concerned about STIs. She reports history of appendicitis and surgical removal. Stump appendicitis is possible but low likelihood. Patient's tachycardia is pretty common for her. She thinks it is higher than usual because of her pain. An EKG was obtained at 10:02 AM and shows a sinus tachycardia, rate 125 without any concerning ischemic changes or ectopy. Update 1300 Patient's test is negative. UA is not concerning for urinary tract infection. No red blood cells to suggest kidney stone. No right flank pain with percussion. Preliminary results of the pelvic ultrasound revealed a cyst directly over the area where she has pain. It was difficult to see and could only be appreciated on the transabdominal approach. There was a small amount of free fluid in the pelvis at the gravity dependent portions. It is suspected that the patient had an ovarian cyst rupture with some bleeding or bruising causing irritation of the gravity-dependent pelvic lining. This fits very well with her presentation. The patient's heart rate came down from 146 to 113 with pain medication. Patient was reassessed and feels comfortable. I think at this point she can be discharged with return precautions. Lab Data 02/09/24 09:06 02/09/24 09:06 Labs/Radiology: Laboratory Results WBC 15.09 10^3/uL (4.5-13.0) H 02/09/24 09:06 RBC 5.55 10^6/uL (3.85-5.65) 02/09/24 09:06 Hgb 15.90 g/dL (12.4-14.8) H 02/09/24 09:06 Hct 47.0 % (36-47) 02/09/24 09:06 MCV 84.7 fl (85-98) L 02/09/24 09:06 MCH 28.6 pg (27-33) 02/09/24 09:06 MCHC 33.8 g/dL (30-55) 02/09/24 09:06 RDW 12.4 % (12.1-15.1) 02/09/24 09:06 Plt Count 368 10^3/cmm (157-399) 02/09/24 09:06 MPV 9.0 fL (7.4-10.4) 02/09/24 09:06 Neut % (Auto) 58.5 % 02/09/24 09:06 Lymph % (Auto) 31.8 % 02/09/24 09:06 [place] % (Auto) 6.2 % 02/09/24 09:06 Eos % (Auto) 2.3 % 02/09/24 09:06 Baso % (Auto) 0.7 % 02/09/24 09:06 Neut # (Auto) 8.84 10^3/uL (1.8-8.0) H 02/09/24 09:06 Lymph # (Auto) 4.8 10^3/uL (1.5-6.5) 02/09/24 09:06 [place] # (Auto) 0.9 10^3/uL (0.2-0.9) 02/09/24 09:06 Eos # (Auto) 0.3 10^3/uL (0.0-0.8) 02/09/24 09:06 Baso # (Auto) 0.1 10^3/uL (0.0-0.1) 02/09/24 09:06 Nucleated RBC % (auto) 0 % 02/09/24 09:06 Nucleated RBCs # 0.0 /100WBC 02/09/24 09:06 Sodium 135 mmol/L (136-145) L 02/09/24 09:06 Potassium 4.0 mmol/L (3.5-5.1) 02/09/24 09:06 Chloride 101 mmol/L (98-107) 02/09/24 09:06 Carbon Dioxide 20 mmol/L (22-29) L 02/09/24 09:06 Anion Gap 18.0 (5-19) 02/09/24 09:06 BUN 13 mg/dL (6-20) 02/09/24 09:06 Creatinine 0.5 mg/dL (0.5-0.9) 02/09/24 09:06 GFR Calculation 157.3 mL/min (90-130) H 02/09/24 09:06 Glucose 128 mg/dL (65-115) H 02/09/24 09:06 Calculated Osmolality 282 mOsm/kg (285-295) L 02/09/24 09:06 Calcium 9.4 mg/dL (8.5-10.5) 02/09/24 09:06 Total Bilirubin 0.4 mg/dL (0.15-1.2) 02/09/24 09:06 AST 15 U/L (0-32) 02/09/24 09:06 ALT 16 U/L (0-33) 02/09/24 09:06 Alkaline Phosphatase 124 U/L (35-105) H 02/09/24 09:06 Total Protein 7.7 g/dL (6.6-8.7) 02/09/24 09:06 Albumin 4.1 g/dL (3.5-5.2) 02/09/24 09:06 Globulin 3.6 g/dL (1.3-4.6) 02/09/24 09:06 HCG, Qual Negative (Negative) 02/09/24 09:54 Urine Color Straw (Yellow) 02/09/24 09:54 Urine Appearance Hazy (CLEAR) A 02/09/24 09:54 Urine pH 5 (5-7) 02/09/24 09:54 Ur Specific [place] 1.025 (1.005-1.030) 02/09/24 09:54 Urine Protein 1+ (Negative) H 02/09/24 09:54 Urine Glucose (UA) Norm (Normal) 02/09/24 09:54 Urine Ketones 1+ (Negative) H 02/09/24 09:54 Urine Blood Neg (Negative) 02/09/24 09:54 Urine Nitrate Negative (Negative) 02/09/24 09:54 Urine Bilirubin Neg (Negative) 02/09/24 09:54 Urine Urobilinogen Norm mg/dL (Negative) 02/09/24 09:54 Ur Leukocyte Esterase Trace (Negative) H 02/09/24 09:54 Urine RBC None /hpf (0-2) 02/09/24 09:54 Urine WBC 0-4 /hpf (0-5) H 02/09/24 09:54 Ur Squamous Epith Cells 5-10 /hpf (0-5) H 02/09/24 09:54 Calcium Oxalate Crystal 10-15 /hpf H 02/09/24 09:54 Amorphous Sediment Not Reportable 02/09/24 09:54 Urine Bacteria 1+ /hpf (NONE) H 02/09/24 09:54 Urine Opiates Screen Negative ng/mL (Negative) 02/09/24 09:54 Ur Barbiturates Screen Negative ng/mL (Negative) 02/09/24 09:54 Ur Phencyclidine Scrn Negative ng/mL (Negative) 02/09/24 09:54 Ur Amphetamines Screen Negative ng/mL (Negative) 02/09/24 09:54 U Benzodiazepines Scrn Negative ng/mL (Negative) 02/09/24 09:54 Urine Cocaine Screen Negative ng/mL (Negative) 02/09/24 09:54 U Marijuana (THC) Screen Negative ng/mL (Negative) 02/09/24 09:54 XR interpretation done by ED provider, pending radiology final review Discharge Plan Discharge Patient Disposition: Home Clinical Impression: Pelvic pain in female, Ovarian cyst Condition: Stable Prescriptions: New hydrocodone-acetaminophen 5-325 mg tablet 1 tab PO Q8H PRN (Reason: pain) 4 Days Qty: 10 0RF naproxen 250 mg tablet 250 mg PO BID 5 Days Qty: 10 0RF No Action (DME) blood-glucose meter Misc See Rx Instructions .Route Qty: 1 0RF Rx Instructions: As directed testing once daily (DME) pen needle, diabetic [Easy Comfort Pen [place]] 33 gauge x 5/32 needle See Rx Instructions .Route Qty: 100 1RF Rx Instructions: As directed metoprolol tartrate 25 mg tablet 25 mg PO DAILY PRN (Reason: Heart rate more than 110 bpm) metoprolol tartrate 75 mg tablet 75 mg PO BID Qty: 60 3RF (DME) Blood Glucose Test Strip See Rx Instructions .Route Qty: 50 5RF Rx Instructions: testing 4 times daily Lantus Solostar U-100 Insulin 100 unit/mL (3 mL) insulin pen 45 unit SUBCUT BID 30 Days Qty: 27 3RF metformin 500 mg tablet 500 mg PO BID 30 Days Qty: 60 0RF (DME) lancets [Comfort Lancets] Misc See Rx Instructions .Route Qty: 100 1RF Rx Instructions: As directed testing once daily Novolog FlexPen U-100 Insulin 100 unit/mL (3 mL) insulin pen See Rx Instructions .ROUTE .COMPLEX Rx Instructions: sliding scale tid dicyclomine 20 mg tablet 20 mg PO QID PRN (Reason: Cramps) Discharge Orders: Discharge ED (Routine); Ordered 02/09/24 Ordered By: Donny Adkins Referrals: Patrica Baron NP [Primary Care Provider] - 4-7 days Discharge Activity: Increase activity as tolerated Patient Instructions: Ovarian Cyst (ED), Pelvic Pain in Women (ED), Opioid Safety, Pain Management Activity Restrictions/Additional Instructions: Please read all discharge instructions and abide by recommendations and return precautions. Make an appointment to follow-up with your primary care doctor as directed for follow-up. Return to ER if getting worse or other emergent symptoms. Coding Level of Care Code ED [employer] for Candy Chatterjee
[2024-02-09] MEDS: morphine 4 mg/mL SDV 1 mL IVP (11:34)
[2024-02-09] MEDS: ondansetron 2 mg/ML SDV 2 mL 4 MG IVP (11:34)
[2024-02-09 11:37] VITALS: BP 146/86; PULSE 113; O2SAT 94
== END 2024-02-09 13:05 | disposition home or self-care (01) ==
PROVIDERS: Emergency Provider Emergency Medicine; PCP Nurse Practitioner Family
DX: N83.209 Unspecified ovarian cyst, unspecified side (principal); Z79.84 Long term (current) use of oral hypoglycemic drugs; Z79.4 Long term (current) use of insulin; E11.9 Type 2 diabetes mellitus without complications
CPT/HCPCS: 76830; 76856; 80053; 80306; 81001; 81025; 85025; 93005; 96374; 96375; 99284; J1885; J2270; J2405

== ENCOUNTER 2024-02-21 00:23 | Emergency (ER) | payer BC, MEDICAID, SELFPAY ==
[2024-02-21] VITALS (11 sets, daily range): BP systolic 117–168; BP diastolic 74–117; PULSE 93–133; RESP 16–18; TEMP 37.1; O2SAT 95–99
--- NOTE | 2024-02-21 01:10 | ED_ITS ---
HPI - Abdominal Pain 2 General: Chief Complaint: Abdominal Pain Stated Complaint: Right abd pain Time Seen by Provider: 02/21/24 00:54 History of Present Illness: Patient presents to the ER complaining of right-sided pelvic pain. Patient said that the pain is been there for about 10 days. She was seen here on 326 she had an ultrasound then that showed a possible endometrioma. Patient said the pain never went away but got a lot worse tonight. So patient presented back to the ER for further evaluation and treatment. Review of Systems 2 General: Reports: 10 or more systems reviewed and unremarkable except in HPI and below PFSH ED 2 PFSH: Medical History Tachyarrhythmia Family history of porphyria Family history of [place] disease Irritable bowel syndrome Fatty liver Type 2 diabetes mellitus Surgical History History of appendectomy Family History Mother Colon cancer, Onset Age: 40 Other Jin disease Diabetes Hypertension Social History Smoking and tobacco/nicotine status: never used tobacco/nicotine Alcohol intake: never Substance/Drug Use: never Household members: significant other Physical Exam 2 Const: COMMON NORMALS: no acute distress, average body habitus, patient oriented x3, no limitations, healthy appearing, alert and well nourished HENMT: COMMON NORMALS: normocephalic, atraumatic, hearing grossly normal bilaterally, external ears normal, Normal external nose present, moist oral mucous membranes and oropharynx normal HEAD & SCALP: normocephalic and atraumatic NOSE: Normal external nose present EXTERNAL EAR: Yes external ears normal Neck/C-Spine: COMMON NORMALS: no JVD Chest: COMMONS NORMALS: normal inspection of the chest and normal palpation of entire chest wall Resp: COMMON NORMALS: normal respiratory effort, No retractions, No use of accessory muscles and clear to auscultation bilaterally AUSCULTATION: clear to auscultation bilaterally Cardio: COMMON NORMALS: no JVD, regular rate, regular rhythm, S1 normal heart sound present, S2 normal heart sound present, No gallops present (Cardio), No clicks present (Cardio), No murmurs present (Cardio) and No rub (Cardio) R ATE: regular rate RHYTHM: regular rhythm HEART SOUNDS: S1 normal heart sound present and S2 normal heart sound present GI: COMMON NORMALS: Normal to inspection, nondistended, normoactive bowel sounds present, Soft to palpation, No hepatosplenomegaly present and no masses; negative for non-tender (Tender to palpate over right lower quadrant/pelvic region) PALPATION: Yes Soft to palpation and Yes No hepatosplenomegaly present Neuro: COMMON NORMALS: patient oriented x3 SENSORIUM/ORIENTATION: Yes alert Course 2 Vital Signs: Vital signs: Vital Signs Temperature 98.7 F 02/21/24 00:24 Pulse Rate 93 02/21/24 04:55 Respiratory Rate 16 02/21/24 03:18 Blood Pressure 122/86 02/21/24 04:55 Pulse Oximetry 98 02/21/24 04:55 Oxygen Delivery Me thod Room Air 02/21/24 04:30 MDM - Abdominal Pain Medical Decision Making Your evaluation in ER showed your lab work was all essentially normal. Your ultrasound showed no acute findings. Will be referred back to your family practice doctor for further evaluation and treatment you will be sent home with a small pain prescription. Differential Diagnosis Likely abdominal pain and endometriosis; Unlikely acute appendicitis, calculus of kidney, constipation, diverticulitis, gastroenteritis, pancreatitis or small bowel obstruction Medical Records I reviewed the patient's medical records. Lab Data I reviewed the patient's lab results. 02/21/24 01:33 02/21/24 01:33 Labs/Radiology: Radiology Impressions Pelvis Ultrasound 02/21/24 01:11 IMPRESSION: No acute findings. Laboratory Results WBC 12.08 10^3/uL (4.5-13.0) 02/21/24 01:33 RBC 5.17 10^6/uL (3.85-5.65) 02/21/24 01:33 Hgb 14.90 g/dL (12.4-14.8) H 02/21/24 01:33 Hct 43.3 % (36-47) 02/21/24 01:33 MCV 83.8 fl (85-98) L 02/21/24 01:33 MCH 28.8 pg (27-33) 02/21/24 01:33 MCHC 34.4 g/dL (30-55) 02/21/24 01:33 RDW 12.3 % (12.1-15.1) 02/21/24 01:33 Plt Count 416 10^3/cmm (157-399) H 02/21/24 01:33 MPV 8.7 fL (7.4-10.4) 02/21/24 01:33 Neut % (Auto) 57.4 % 02/21/24 01:33 Lymph % (Auto) 32.5 % 02/21/24 01:33 [place] % (Auto) 7.3 % 02/21/24 01:33 Eos % (Auto) 1.4 % 02/21/24 01:33 Baso % (Auto) 0.7 % 02/21/24 01:33 Neut # (Auto) 6.94 10^3/uL (1.8-8.0) 02/21/24 01:33 Lymph # (Auto) 3.9 10^3/uL (1.5-6.5) 02/21/24 01:33 [place] # (Auto) 0.9 10^3/uL (0.2-0.9) 02/21/24 01:33 Eos # (Auto) 0.2 10^3/uL (0.0-0.8) 02/21/24 01:33 Baso # (Auto) 0.1 10^3/uL (0.0-0.1) 02/21/24 01:33 Nucleated RBC % (auto) 0 % 02/21/24 01:33 Nucleated RBCs # 0.0 /100WBC 02/21/24 01:33 Sodium 138 mmol/L (136-145) 02/21/24 01:33 Potassium 3.4 mmol/L (3.5-5.1) L 02/21/24 01:33 Chloride 104 mmol/L (98-107) 02/21/24 01:33 Carbon Dioxide 20 mmol/L (22-29) L 02/21/24 01:33 Anion Gap 17.4 (5-19) 02/21/24 01:33 BUN 7 mg/dL (6-20) 02/21/24 01:33 Creatinine 0.4 mg/dL (0.5-0.9) L 02/21/24 01:33 GFR Calculation 203.5 mL/min (90-130) H 02/21/24 01:33 Glucose 94 mg/dL (65-115) 02/21/24 01:33 POC Glucose 97 mg/dL (70-110) 02/21/24 01:12 Calculated Osmolality 284 mOsm/kg (285-295) L 02/21/24 01:33 Calcium 9.0 mg/dL (8.5-10.5) 02/21/24 01:33 Total Bilirubin 0.3 mg/dL (0.15-1.2) 02/21/24 01:33 AST 12 U/L (0-32) 02/21/24 01: ALT 17 U/L (0-33) 02/21/24 01:33 Alkaline Phosphatase 100 U/L (35-105) 02/21/24 01:33 Total Protein 7.7 g/dL (6.6-8.7) 02/21/24 01: Albumin 4.2 g/dL (3.5-5.2) 02/21/24 01: Globulin 3.5 g/dL (1.3-4.6) 02/21/24 01:33 Lipase 18 U/L (13-60) 02/21/24 01:33 HCG, Qual Negative (Negative) 02/21/24 01:33 Urine Color Yellow (Yellow) 02/21/24 01:33 Urine Appearance Hazy (CLEAR) A 02/21/24 01:33 Urine pH 5 (5-7) 02/21/24 01:33 Ur Specific [place] 1.020 (1.005-1.030) 02/21/24 01:33 Urine Protein 1+ (Negative) H 02/21/24 01:33 Urine Glucose (UA) 4+ (Normal) H 02/21/24 01:33 Urine Ketones Negative (Negative) 02/21/24 01:33 Urine Blood Neg (Negative) 02/21/24 01: Urine Nitrate Negative (Negative) 02/21/24 01:33 Urine Bilirubin Neg (Negative) 02/21/24 01:33 Urine Urobilinogen Neg mg/dL (Negative) 02/21/24 01:33 Ur Leukocyte Esterase Negative (Negative) 02/21/24 01:33 Urine RBC 0-4 /hpf (0-2) H 02/21/24 01:33 Urine WBC 0-4 /hpf (0-5) H 02/21/24 01:33 Ur Squamous Epith Cells 15-25 /hpf (0-5) H 02/21/24 01:33 Amorphous Sediment Not Reportable 02/21/24 01:33 Urine Bacteria 2+ /hpf (NONE) H 02/21/24 01:33 Urine Mucus 2+ /hpf 02/21/24 01:33 All radiology interpretation(s) finalized by discharge Discharge Plan Discharge Patient Disposition: Home Clinical Impression: Pelvic pain Condition: Stable Prescriptions: New hydrocodone-acetaminophen 5-325 mg tablet 1 tab PO Q6H PRN (Reason: pain) Qty: 14 0RF No Action (DME) blood-glucose meter Misc See Rx Instructions .Route Qty: 1 0RF Rx Instructions: As directed testing once daily (DME) pen needle, diabetic [Easy Comfort Pen [place]] 33 gauge x 5/32 needle See Rx Instructions .Route Qty: 100 1RF Rx Instructions: As directed metoprolol tartrate 25 mg tablet 25 mg PO DAILY PRN (Reason: Heart rate more than 110 bpm) metoprolol tartrate 75 mg tablet 75 mg PO BID Qty: 60 3RF (DME) Blood Glucose Test Strip See Rx Instructions .Route Qty: 50 5RF Rx Instructions: testing 4 times daily Lantus Solostar U-100 Insulin 100 unit/mL (3 mL) insulin pen 45 unit SUBCUT BID 30 Days Qty: 27 3RF metformin 500 mg tablet 500 mg PO BID 30 Days Qty: 60 0RF (DME) lancets [Comfort Lancets] Misc See Rx Instructions .Route Qty: 100 1RF Rx Instructions: As directed testing once daily Novolog FlexPen U-100 Insulin 100 unit/mL (3 mL) insulin pen See Rx Instructions .ROUTE .COMPLEX Rx Instructions: sliding scale tid dicyclomine 20 mg tablet 20 mg PO QID PRN (Reason: Cramps) Discharge Orders: Discharge ED (Routine); Ordered 02/21/24 Ordered By: Marco Schmidt Referrals: Patrica Baron NP [Primary Care Provider] - 1 week Patient Instructions: Pelvic Pain in Women (ED), Opioid Safety, Pain Management Activity Restrictions/Additional Instructions: Your workup in ER was unremarkable for any other acute causes of your pain. Please refer back to your family practice doctor who may end up referring you to [employer] [facility] or urology. You will be given a small prescription of pain pills to go home with. If your pain becomes unbearable or changes please feel free to return to the ER. Coding Level of Care Code ED Latent Print Examiner for Candy Chatterjee
--- NOTE | 2024-02-21 01:11 | USR_ITS ---
PROCEDURE INFORMATION: Exam: US Nonobstetric Pelvis; Complete Exam date and time: 02/21/2024 1:54 AM Age: 19 years old Clinical indication: Pelvic pain; Patient HX: This patient was seen here for the same complaint on 02/09/24; Additional info: Worsening right sided pelvic pain, LABS AND CLINICAL REPORTS: Choriogonadotropin in serum (Serum HCG): 0 mIU/mL Last menstrual period start date: 01/12/2024 TECHNIQUE: Imaging protocol: Transabdominal pelvic nonobstetric ultrasound. Complete exam. Real time ultrasound with image documentation. COMPARISON: US transvaginal [id number] 02/09/2024 12:11 PM FINDINGS: Uterus: Uterus measures 7.35 cm x 5.56 cm x 5.49 cm. Normal endometrium measuring 0.8 cm in thickness. Right ovary/adnexa: Right ovary measures 4.6 cm x 4.1 cm x 2.3 cm. Right ovarian volume is 22.9 mL. Small cyst measuring 3.6 cm noted. Left ovary/adnexa: Left ovary measures 1.9 cm x 1.7 cm x 1 cm. Left ovarian volume is 1.7 mL. Intraperitoneal space: No intraperitoneal fluid. Urinary bladder: Normal. US/US pelvic limited [id number] IMPRESSION: No acute findings.
[2024-02-21 01:16] LABS: Glucose Point of Care 97 mg/dL (70-110)
[2024-02-21 01:37] LABS: Basophils # 0.1 10^3/uL (0.0-0.1); Basophils % 0.7 %; Eosinophils # 0.2 10^3/uL (0.0-0.8); Eosinophils % 1.4 %; Hematocrit 43.3 % (36-47); Lymphocytes # 3.9 10^3/uL (1.5-6.5); Lymphocytes % 32.5 %; Mean Corpuscular HGB Conc 34.4 g/dL (30-55); Mean Corpuscular Hemoglobin 28.8 pg (27-33); Mean Corpuscular Volume 83.8 fl (85-98); Mean Platelet Volume 8.7 fL (7.4-10.4); Monocytes # 0.9 10^3/uL (0.2-0.9); Monocytes % 7.3 %; Neutrophils # 6.94 10^3/uL (1.8-8.0); Neutrophils % 57.4 %; Nucleated Red Blood Cells % 0 %; Platelet Count 416 10^3/cmm (157-399); Red Blood Count 5.17 10^6/uL (3.85-5.65); Red Cell Distribution Width 12.3 % (12.1-15.1); White Blood Count 12.08 10^3/uL (4.5-13.0)
[2024-02-21] MEDS: ondansetron 2 mg/ML SDV 2 mL 4 MG IVP (01:39)
[2024-02-21 01:41] LABS: HCG Qualitative Urine. Negative (Negative)
[2024-02-21] MEDS: morphine 4 mg/mL SDV 1 mL IVP ×2 (01:42→03:18)
[2024-02-21 01:55] LABS: Add Urine Microscopic? YES; Alanine Aminotransferase 17 U/L (0-33); Albumin Level 4.2 g/dL (3.5-5.2); Alkaline Phosphatase 100 U/L (35-105); Anion Gap 17.4 (5-19); Aspartate Amino Transferase 12 U/L (0-32); Bilirubin Urine Neg (Negative); Blood Urea Nitrogen 7 mg/dL (6-20); Blood Urine Neg (Negative); Carbon Dioxide 20 mmol/L (22-29); Chloride 104 mmol/L (98-107); Creatinine Clr Calc Pharmacy 311.0972; Globulin 3.5 g/dL (1.3-4.6); Glomerular Filtration Rate 203.5 mL/min (90-130); Glucose 94 mg/dL (65-115); Glucose Urine UA 4+ (Normal); Ketones Urine Negative (Negative); Leukocyte Esterase Urine Negative (Negative); Lipase 18 U/L (13-60); Nitrate Urine Negative (Negative); Osmolality Calculated 284 mOsm/kg (285-295); Potassium 3.4 mmol/L (3.5-5.1); Protein Urine 1+ (Negative); Sodium 138 mmol/L (136-145); Total Bilirubin 0.3 mg/dL (0.15-1.2); Total Protein 7.7 g/dL (6.6-8.7); Urine Appearance Hazy (CLEAR); Urine Color Yellow (Yellow); Urobilinogen Urine Neg (Negative); pH Urine 5 (5-7)
[2024-02-21 01:56] LABS: Add Urine Culture? No; Bacteria Urine 2+ /hpf; Mucus Urine 2+ /hpf; RBC Urine 0-4 /hpf (0-2); Squamous Epithelial Cell Urine 15-25 /hpf (0-5); WBC Urine 0-4 /hpf (0-5)
[2024-02-21] MEDS: HYDROcodone-acetaminophen 5-325 mg Tablet 2 TAB PO (04:50)
== END 2024-02-21 04:55 | disposition home or self-care (01) ==
PROVIDERS: Emergency Provider Emergency Medicine; PCP Nurse Practitioner Family
DX: R10.2 Pelvic and perineal pain (principal); Z79.4 Long term (current) use of insulin; Z79.84 Long term (current) use of oral hypoglycemic drugs; E11.9 Type 2 diabetes mellitus without complications
CPT/HCPCS: 36416; 51701; 76857; 80053; 81001; 81025; 82962; 83690; 85025; 96374; 96375; 96376; 99285; J2270; J2405

== ENCOUNTER 2024-02-24 12:25 | Emergency (ER) | payer BC, MEDICAID, SELFPAY ==
[2024-02-24 12:28] VITALS: BP 141/81; PULSE 136; RESP 16; TEMP 36.7; O2SAT 98; BMI 34.8
--- NOTE | 2024-02-24 13:52 | ED_ITS ---
HPI - Abdominal Pain 2 General: Chief Complaint: Abdominal Pain Stated Complaint: pelvic and abd pain Time Seen by Provider: 02/24/24 13:37 Source: patient Mode of arrival: ambulatory Limitations: no limitations History of Present Illness: Patient is a 19-year-old female presents to ED today with continued right lower pelvic pain. Patient was seen here in the emergency department on 02/08 as well as 02/20 for the discomfort. She has had pelvic ultrasound showing a right cyst/endometrioma. She is concerned as it appears to be growing stating that one ultrasound showed it at slightly over a centimeter and the following ultrasound showed a roughly 3 cm. No torsion on either ultrasound. Patient states she is getting nauseous secondary to the pain. She has been prescribed hydrocodone but states this is not helping her discomfort. [facility] week with Dr. Thibodeaux. Patient denies any new sexual partners. Denies vaginal bleeding, discharge, odor, or concern for sexually transmitted infections. She denies urinary complaints. MD elicited complaint: abdominal pain Onset (ago): week(s) Pain Consistency: constant Location: Pelvis Severity: severe Quality: stabbing and sharp Radiation: none Migration to: no migration Exacerbating factors: nothing Relieving factors: nothing Associated Symptoms: Reports nausea; Denies change in bowel habits, chills, diarrhea, dysuria, fever(s) and vomiting Related Data: Patient : No Review of Systems 2 Const: Denies: fever(s), chills, body aches, fatigue or malaise Card: Denies: chest pain Resp: Denies: dyspnea GI: Reports: abdominal pain and nausea; Denies: vomiting, diarrhea or change in bowel habits : Reports: pelvic pain; Denies: flank pain, difficulty voiding, dysuria, urinary frequency, urinary urgency, urinary hesitancy, genital pruritis, vaginal odor or vaginal discharge Musc: Denies: back pain Skin/Breast: Denies: rash Neuro: Denies: dizziness PFSH ED 2 PFSH: Medical History Tachyarrhythmia Family history of porphyria Family history of [place] disease Irritable bowel syndrome Fatty liver Type 2 diabetes mellitus Surgical History History of appendectomy Family History Mother Colon cancer, Onset Age: 40 Other [place] disease Diabetes Hypertension Social History Smoking and tobacco/nicotine status: never used tobacco/nicotine Alcohol intake: never Substance/Drug Use: never Household members: significant other Physical Exam 2 Const: COMMON NORMALS: no acute distress, patient oriented x3, no limitations and alert GENERAL APPEARANCE: cooperative NUTRITIONAL APPEARANCE: obese ORIENTATION/CONSCIOUSNESS: Yes awake, Yes oriented to person, Yes oriented to place and Yes oriented to time Resp: COMMON NORMALS: normal respiratory effort and clear to auscultation bilaterally AUSCULTATION: clear to auscultation bilaterally Cardio: COMMON NORMALS: regular rate and regular rhythm RATE: regular rate RHYTHM: regular rhythm GI: COMMON NORMALS: Normal to inspection, nondistended, normoactive bowel sounds present, Soft to palpation, No hepatosplenomegaly present and no masses INSPECTION: Yes normal to inspection AUSCULTATION: Yes normoactive bowel sounds PALPATION: Yes Soft to palpation, Yes Tenderness to palpation present (GI) (R lower pelvis; no tenderness to McBurney's ), No Guarding due to palpation present (GI), No Rigid due to palpation and Yes No hepatosplenomegaly present : COMMON NORMALS: Yes no CVA tenderness BLADDER/KIDNEY EXAM: Yes no CVA tenderness Back/Pelvis: COMMON NORMALS: no CVA tenderness and thoracic and lumbar spine normal to inspection Extremity: GENERAL: Yes normal exam except as noted Neuro: COMMON NORMALS: patient oriented x3, moves all extremities, no focal motor deficits and no sensory deficits noted SENSORIUM/ORIENTATION: Yes alert, Yes oriented to person, Yes oriented to place and Yes oriented to time Skin: COMMON NORMALS: no rashes or lesions noted GENERAL SKIN EXAM: no rashes or lesions noted Course 2 Vital Signs: Vital signs: Vital Signs Temperature 98.0 F 02/24/24 12:28 Pulse Rate 83 02/24/24 17:03 Respiratory Rate 20 H 02/24/24 15:53 Blood Pressure 121/83 02/24/24 17:03 Pulse Oximetry 97 02/24/24 17:03 Oxygen Delivery Me thod Room Air 02/24/24 12:28 MDM - Abdominal Pain Medical Decision Making Patient's pain has been present for over 2 weeks now. Ultrasounds on her last 2 ED visits have been reviewed. She has no abdominal tenderness and all of her tenderness is located to her right pelvis. She has no complaints of vaginal discharge or vaginal odor. No new sexual partners. PID/pelvic abscess unlikely. She has no torsion evident on either previous ultrasound. Her last ultrasound was just performed 3 days ago. I do not feel like we need to repeat this today. Her blood work is unremarkable. UA is contaminated. She has no urinary symptoms. At this time recommend she follow-up with Dr. Thibodeaux next week as scheduled. Return to ED precautions given. Medical Records I reviewed the patient's medical records. Lab Data I reviewed the patient's lab results. 02/24/24 14:25 02/24/24 14:25 Labs/Radiology: Laboratory Results WBC 12.36 10^3/uL (4.5-13.0) 02/24/24 14:25 RBC 5.39 10^6/uL (3.85-5.65) 02/24/24 14:25 Hgb 15.50 g/dL (12.4-14.8) H 02/24/24 14:25 Hct 45.2 % (36-47) 02/24/24 14:25 MCV 83.9 fl (85-98) L 02/24/24 14:25 MCH 28.8 pg (27-33) 02/24/24 14:25 MCHC 34.3 g/dL (30-55) 02/24/24 14:25 RDW 12.6 % (12.1-15.1) 02/24/24 14:25 Plt Count 385 10^3/cmm (157-399) 02/24/24 14:25 MPV 8.9 fL (7.4-10.4) 02/24/24 14:25 Neut % (Auto) 68.9 % 02/24/24 14:25 Lymph % (Auto) 22.7 % 02/24/24 14:25 [place] % (Auto) 5.9 % 02/24/24 14:25 Eos % (Auto) 1.4 % 02/24/24 14:25 Baso % (Auto) 0.6 % 02/24/24 14:25 Neut # (Auto) 8.52 10^3/uL (1.8-8.0) H 02/24/24 14:25 Lymph # (Auto) 2.8 10^3/uL (1.5-6.5) 02/24/24 14:25 [place] # (Auto) 0.7 10^3/uL (0.2-0.9) 02/24/24 14:25 Eos # (Auto) 0.2 10^3/uL (0.0-0.8) 02/24/24 14:25 Baso # (Auto) 0.1 10^3/uL (0.0-0.1) 02/24/24 14:25 Nucleated RBC % (auto) 0 % 02/24/24 14:25 Nucleated RBCs # 0.0 /100WBC 02/24/24 14:25 Sodium 136 mmol/L (136-145) 02/24/24 14:25 Potassium 4.5 mmol/L (3.5-5.1) 02/24/24 14:25 Chloride 103 mmol/L (98-107) 02/24/24 14:25 Carbon Dioxide 22 mmol/L (22-29) 02/24/24 14:25 Anion Gap 15.5 (5-19) 02/24/24 14:25 BUN 9 mg/dL (6-20) 02/24/24 14:25 Creatinine 0.5 mg/dL (0.5-0.9) 02/24/24 14:25 GFR Calculation 157.3 mL/min (90-130) H 02/24/24 14:25 Glucose 171 mg/dL (65-115) H 02/24/24 14:25 Calculated Osmolality 285 mOsm/kg (285-295) 02/24/24 14:25 Calcium 9.5 mg/dL (8.5-10.5) 02/24/24 14:25 Total Bilirubin 0.5 mg/dL (0.15-1.2) 02/24/24 14:25 AST 12 U/L (0-32) 02/24/24 14:25 ALT 19 U/L (0-33) 02/24/24 14:25 Alkaline Phosphatase 96 U/L (35-105) 02/24/24 14:25 Total Protein 7.9 g/dL (6.6-8.7) 02/24/24 14:25 Albumin 4.1 g/dL (3.5-5.2) 02/24/24 14:25 Globulin 3.8 g/dL (1.3-4.6) 02/24/24 14:25 Lipase 14 U/L (13-60) 02/24/24 14:25 HCG, Qual Negative (Negative) 02/24/24 14:25 Urine Color Yellow (Yellow) 02/24/24 15:01 Urine Appearance Hazy (CLEAR) A 02/24/24 15:01 Urine pH 5 (5-7) 02/24/24 15:01 Ur Specific [place] 1.005 (1.005-1.030) 02/24/24 15:01 Urine Protein Trace (Negative) 02/24/24 15:01 Urine Glucose (UA) Norm (Normal) 02/24/24 15:01 Urine Ketones Negative (Negative) 02/24/24 15:01 Urine Blood Trace (Negative) H 02/24/24 15:01 Urine Nitrate Negative (Negative) 02/24/24 15:01 Urine Bilirubin Neg (Negative) 02/24/24 15:01 Urine Urobilinogen Norm mg/dL (Negative) 02/24/24 15:01 Ur Leukocyte Esterase 2+ (Negative) H 02/24/24 15:01 Urine RBC 0-4 /hpf (0-2) H 02/24/24 15:01 Urine WBC 15-25 /hpf (0-5) H 02/24/24 15:01 Ur Squamous Epith Cells 15-25 /hpf (0-5) H 02/24/24 15:01 Amorphous Sediment Not Reportable 02/24/24 15:01 Urine Bacteria 3+ /hpf (NONE) H 02/24/24 15:01 No radiology studies performed this visit Discharge Plan Discharge Patient Disposition: Home Clinical Impression: Pelvic pain, Mass of right ovary Condition: Stable Prescriptions: New ondansetron 4 mg tablet,disintegrating 4 mg PO Q8H PRN (Reason: nausea and vomiting) Qty: 14 0RF hydrocodone-acetaminophen 7.5-325 mg tablet 1 tab PO Q6H Qty: 20 0RF Discontinued hydrocodone-acetaminophen 5-325 mg tablet 1 tab PO Q6H PRN (Reason: pain) Qty: 14 0RF No Action (DME) blood-glucose meter Misc See Rx Instructions .Route Qty: 1 0RF Rx Instructions: As directed testing once daily (DME) pen needle, diabetic [Easy Comfort Pen [place]] 33 gauge x 5/32 needle See Rx Instructions .Route Qty: 100 1RF Rx Instructions: As directed metoprolol tartrate 25 mg tablet 25 mg PO DAILY PRN (Reason: Heart rate more than 110 bpm) metoprolol tartrate 75 mg tablet 75 mg PO BID Qty: 60 3RF (DME) Blood Glucose Test Strip See Rx Instructions .Route Qty: 50 5RF Rx Instructions: testing 4 times daily Lantus Solostar U-100 Insulin 100 unit/mL (3 mL) insulin pen 45 unit SUBCUT BID 30 Days Qty: 27 3RF metformin 500 mg tablet 500 mg PO BID 30 Days Qty: 60 0RF (DME) lancets [Comfort Lancets] Misc See Rx Instructions .Route Qty: 100 1RF Rx Instructions: As directed testing once daily insulin aspart U-100 [Novolog FlexPen U-100 Insulin] 100 unit/mL (3 mL) insulin pen See Rx Instructions .ROUTE .COMPLEX Rx Instructions: 15 UNITS PER SLIDING SCALE 3 TIMES DAILY. dicyclomine 20 mg tablet 20 mg PO QID PRN (Reason: Cramps) Discharge Orders: Discharge ED (Routine); Ordered 02/24/24 Ordered By: Sarika Newby Referrals: Patrica Baron NP [Primary Care Provider] - Patient Instructions: Opioid Safety, Pain Management Activity Restrictions/Additional Instructions: As we discussed please follow-up with Dr. Thibodeaux next week at your currently scheduled appointment. Coding Level of Care Code ED Residential Door Installer for Candy Chatterjee
[2024-02-24 14:36] LABS: Basophils # 0.1 10^3/uL (0.0-0.1); Basophils % 0.6 %; Eosinophils # 0.2 10^3/uL (0.0-0.8); Eosinophils % 1.4 %; Hematocrit 45.2 % (36-47); Lymphocytes # 2.8 10^3/uL (1.5-6.5); Lymphocytes % 22.7 %; Mean Corpuscular HGB Conc 34.3 g/dL (30-55); Mean Corpuscular Hemoglobin 28.8 pg (27-33); Mean Corpuscular Volume 83.9 fl (85-98); Mean Platelet Volume 8.9 fL (7.4-10.4); Monocytes # 0.7 10^3/uL (0.2-0.9); Monocytes % 5.9 %; Neutrophils # 8.52 10^3/uL (1.8-8.0); Neutrophils % 68.9 %; Nucleated Red Blood Cells % 0 %; Platelet Count 385 10^3/cmm (157-399); Red Blood Count 5.39 10^6/uL (3.85-5.65); Red Cell Distribution Width 12.6 % (12.1-15.1); White Blood Count 12.36 10^3/uL (4.5-13.0)
[2024-02-24 14:50] LABS: HCG, Serum Qual Negative (Negative)
[2024-02-24 14:51] LABS: Alanine Aminotransferase 19 U/L (0-33); Albumin Level 4.1 g/dL (3.5-5.2); Alkaline Phosphatase 96 U/L (35-105); Anion Gap 15.5 (5-19); Aspartate Amino Transferase 12 U/L (0-32); Blood Urea Nitrogen 9 mg/dL (6-20); Calcium 9.5 mg/dL (8.5-10.5); Carbon Dioxide 22 mmol/L (22-29); Chloride 103 mmol/L (98-107); Creatinine Clr Calc Pharmacy 248.8777; Globulin 3.8 g/dL (1.3-4.6); Glomerular Filtration Rate 157.3 mL/min (90-130); Glucose 171 mg/dL (65-115); Lipase 14 U/L (13-60); Osmolality Calculated 285 mOsm/kg (285-295); Potassium 4.5 mmol/L (3.5-5.1); Sodium 136 mmol/L (136-145); Total Bilirubin 0.5 mg/dL (0.15-1.2); Total Protein 7.9 g/dL (6.6-8.7)
[2024-02-24] MEDS: ondansetron 2 mg/ML SDV 2 mL 4 MG IVP (15:23)
[2024-02-24 15:24] VITALS: RESP 20
[2024-02-24] MEDS: morphine 4 mg/mL SDV 1 mL IVP (15:24)
[2024-02-24 15:32] LABS: Blood Urine Trace (Negative); Glucose Urine UA Norm (Normal); Ketones Urine Negative (Negative); Nitrate Urine Negative (Negative); Protein Urine Trace (Negative); Specific Gravity, Urine 1.005 (1.005-1.030); Urine Appearance Hazy (CLEAR); Urine Color Yellow (Yellow); pH Urine 5 (5-7)
[2024-02-24 15:33] LABS: Add Urine Culture? No; Add Urine Microscopic? YES; Bacteria Urine 3+ /hpf; Bilirubin Urine Neg (Negative); Leukocyte Esterase Urine 2+ (Negative); RBC Urine 0-4 /hpf (0-2); Squamous Epithelial Cell Urine 15-25 /hpf (0-5); Urobilinogen Urine Norm (Negative); WBC Urine 15-25 /hpf (0-5)
[2024-02-24 15:53] VITALS: BP 114/91; PULSE 102; RESP 20; O2SAT 97
[2024-02-24] MEDS: fentaNYL 50 mcg/mL INJ 2mL IVP (16:45)
[2024-02-24 17:03] VITALS: BP 121/83; PULSE 83; O2SAT 97
--- NOTE | 2024-02-25 15:21 | PC.SOCIAL ---
[facility]/[employer] Referral Referral message sent at this time. Clinic to contact patient with appt date/time.
== END 2024-02-24 17:05 | disposition home or self-care (01) ==
PROVIDERS: Emergency Medicine; Emergency Provider Physician Assistant; PCP Nurse Practitioner Family
DX: R10.2 Pelvic and perineal pain (principal); N83.9 Noninflammatory disorder of ovary, fallopian tube and broad ligament, unspecified; Z79.4 Long term (current) use of insulin; Z79.84 Long term (current) use of oral hypoglycemic drugs; E11.9 Type 2 diabetes mellitus without complications
CPT/HCPCS: 36415; 80053; 81001; 83690; 84703; 85025; 96374; 96375; 99284; J2270; J2405; J3010

== ENCOUNTER 2024-02-26 23:07 | Emergency (ER) | payer BC, MEDICAID, SELFPAY ==
[2024-02-26 23:10] VITALS: BP 155/94; PULSE 125; RESP 20; TEMP 36.4; O2SAT 97
--- NOTE | 2024-02-26 23:13 | W.ED.ABDPA2 ---
HPI - Abdominal Pain General: Chief Complaint: Abdominal Pain Stated Complaint: abdomen pain, constipation Time Seen by Provider: 02/26/24 23:13 History of Present Illness: 19-year-old female presents to the emergency department with complaints of constipation and abdominal pain since yesterday. She states that she started hydrocodone pain medication for an ovarian cyst and since that time she states she has not been able to have a bowel movement. She states she does have significant abdominal cramping and has taken Dulcolax without results. She denies nausea or vomiting. She denies fevers chills or night sweats. Associated Symptoms: Reports constipation Related Data: Date of Last Menstrual Period: 01/15/24 Review of Systems General: Reports: 10 or more systems reviewed and unremarkable except in HPI and below GI: Reports: abdominal pain and constipation [facility] PFSH: Medical History Tachyarrhythmia Family history of porphyria Family history of [place] disease Irritable bowel syndrome Fatty liver Type 2 diabetes mellitus Surgical History History of appendectomy Family History Mother Colon cancer, Onset Age: 40 Other [place] disease Diabetes Hypertension Social History Smoking and tobacco/nicotine status: never used tobacco/nicotine Alcohol intake: never Substance/Drug Use: never Household members: significant other Female Reproductive History: Date of last menstrual period: 01/15/24 Physical Exam Const: COMMON NORMALS: no acute distress, patient oriented x3 and alert HENMT: COMMON NORMALS: normocephalic, atraumatic and Normal external nose present HEAD & SCALP: normocephalic and atraumatic NOSE: Normal external nose present Eye: COMMON NORMALS: Equal, round and reactive pupils present and EOMs intact bilaterally PUPIL: Yes Equal, round and reactive pupils present Neck/C-Spine: COMMON NORMALS: full ROM, supple and no JVD Resp: COMMON NORMALS: normal respiratory effort, No use of accessory muscles and clear to auscultation bilaterally AUSCULTATION: clear to auscultation bilaterally Cardio: COMMON NORMALS: no JVD, regular rate, regular rhythm, S1 normal heart sound present, S2 normal heart sound present and Peripheral pulses 2+ throughout RATE: regular rate RHYTHM: regular rhythm HEART SOUNDS: S1 normal heart sound present and S2 normal heart sound present PERIPHERAL PULSES: Peripheral pulses 2+ throughout GI: COMMON NORMALS: Normal to inspection, nondistended, normoactive bowel sounds present, Soft to palpation and non-tender PALPATION: Yes Soft to palpation : COMMON NORMALS: Yes no CVA tenderness BLADDER/KIDNEY EXAM: Yes no CVA tenderness Back/Pelvis: COMMON NORMALS: no CVA tenderness and thoracic and lumbar spine normal to inspection Extremity: COMMON NORMALS: normal to inspection, full ROM and capillary refill normal Neuro: COMMON NORMALS: patient oriented x3 SENSORIUM/ORIENTATION: Yes alert Psych: COMMON NORMALS: mental status grossly normal and Normal thought process present THOUGHT PROCESS: Normal thought process present Skin: COMMON NORMALS: no rashes or lesions noted GENERAL SKIN EXAM: no rashes or lesions noted Course Reevaluation(s): Reevaluation #1: Reevaluation the patient does demonstrate results secondary to medications that have been administered as well as mild digital disimpaction. Time: 01:59 Vital Signs: Vital signs: Vital Signs Temperature 97.5 F L 02/26/24 23:10 Pulse Rate 125 H 02/26/24 23:10 Respiratory Rate 20 H 02/26/24 23:10 Blood Pressure 155/94 02/26/24 23:10 Pulse Oximetry 97 02/26/24 23:10 Oxygen Delivery Me thod Room Air 02/26/24 23:10 MDM - Abdominal Pain Medical Decision Making Physical exam completed and documented. I did obtain a CBC that demonstrated elevated white blood cell count of 14.4 CMP was obtained and was essentially normal with exception of elevated glucose of 274. I did order an x-ray and urinalysis and thus far the patient has not been able to urinate so we have been unable to obtain the x-ray given her risk of childbearing age. She did receive an enema as well as by mouth magnesium citrate, glycerin suppository and senna-S with mild results. Medical Records I reviewed the patient's medical records. Lab Data I reviewed the patient's lab results. 02/26/24 23:37 02/26/24 23:37 Labs/Radiology: Laboratory Results WBC 14.43 10^3/uL (4.5-13.0) H 02/26/24 23:37 RBC 5.07 10^6/uL (3.85-5.65) 02/26/24 23:37 Hgb 14.50 g/dL (12.4-14.8) 02/26/24 23:37 Hct 42.3 % (36-47) 02/26/24 23:37 MCV 83.4 fl (85-98) L 02/26/24 23: MCH 28.6 pg (27-33) 02/26/24 23: MCHC 34.3 g/dL (30-55) 02/26/24 23:37 RDW 12.7 % (12.1-15.1) 02/26/24 23: Plt Count 345 10^3/cmm (157-399) 02/26/24 23:37 MPV 8.9 fL (7.4-10.4) 02/26/24 23:37 Neut % (Auto) 77.4 % 02/26/24 23:37 Lymph % (Auto) 15.5 % 02/26/24 23:37 [place] % (Auto) 5.3 % 02/26/24 23:37 Eos % (Auto) 0.6 % 02/26/24 23:37 Baso % (Auto) 0.6 % 02/26/24 23:37 Neut # (Auto) 11.20 10^3/uL (1.8-8.0) H 02/26/24 23:37 Lymph # (Auto) 2.2 10^3/uL (1.5-6.5) 02/26/24 23:37 [place] # (Auto) 0.8 10^3/uL (0.2-0.9) 02/26/24 23:37 Eos # (Auto) 0.1 10^3/uL (0.0-0.8) 02/26/24 23:37 Baso # (Auto) 0.1 10^3/uL (0.0-0.1) 02/26/24 23:37 Nucleated RBC % (auto) 0 % 02/26/24 23:37 Nucleated RBCs # 0.0 /100WBC 02/26/24 23:37 Sodium 136 mmol/L (136-145) 02/26/24 23:37 Potassium 4.2 mmol/L (3.5-5.1) 02/26/24 23:37 Chloride 103 mmol/L (98-107) 02/26/24 23:37 Carbon Dioxide 22 mmol/L (22-29) 02/26/24 23:37 Anion Gap 15.2 (5-19) 02/26/24 23:37 BUN 8 mg/dL (6-20) 02/26/24 23:37 Creatinine 0.4 mg/dL (0.5-0.9) L 02/26/24 23:37 GFR Calculation 203.5 mL/min (90-130) H 02/26/24 23:37 Glucose 274 mg/dL (65-115) H 02/26/24 23:37 Calculated Osmolality 290 mOsm/kg (285-295) 02/26/24 23:37 Calcium 9.0 mg/dL (8.5-10.5) 02/26/24 23:37 Total Bilirubin 0.6 mg/dL (0.15-1.2) 02/26/24 23:37 AST 9 U/L (0-32) 02/26/24 23:37 ALT 14 U/L (0-33) 02/26/24 23:37 Alkaline Phosphatase 98 U/L (35-105) 02/26/24 23:37 Total Protein 7.5 g/dL (6.6-8.7) 02/26/24 23:37 Albumin 4.0 g/dL (3.5-5.2) 02/26/24 23:37 Globulin 3.5 g/dL (1.3-4.6) 02/26/24 23:37 Lipase 14 U/L (13-60) 02/26/24 23:37 No radiology studies performed this visit Discharge Plan Discharge Patient Disposition: Home Clinical Impression: Constipation, Abdominal pain Condition: Stable Prescriptions: New sennosides-docusate sodium [Senna-S] 8.6-50 mg tablet 2 tab-cap PO BID Qty: 60 0RF No Action (DME) blood-glucose meter Misc See Rx Instructions .Route Qty: 1 0RF Rx Instructions: As directed testing once daily (DME) pen needle, diabetic [Easy Comfort Pen [place]] 33 gauge x 5/32 needle See Rx Instructions .Route Qty: 100 1RF Rx Instructions: As directed metoprolol tartrate 25 mg tablet 25 mg PO DAILY PRN (Reason: Heart rate more than 110 bpm) metoprolol tartrate 75 mg tablet 75 mg PO BID Qty: 60 3RF (DME) Blood Glucose Test Strip See Rx Instructions .Route Qty: 50 5RF Rx Instructions: testing 4 times daily Lantus Solostar U-100 Insulin 100 unit/mL (3 mL) insulin pen 45 unit SUBCUT BID 30 Days Qty: 27 3RF (DME) lancets [Comfort Lancets] Misc See Rx Instructions .Route Qty: 100 1RF Rx Instructions: As directed testing once daily metformin 500 mg tablet See Rx Instructions .ROUTE .COMPLEX Qty: 60 0RF Dose Instruction: TAKE 1 TABLET BY MOUTH TWICE DAILY Rx Instructions: TAKE 1 TABLET BY MOUTH TWICE DAILY insulin aspart U-100 [Novolog FlexPen U-100 Insulin] 100 unit/mL (3 mL) insulin pen See Rx Instructions .ROUTE .COMPLEX Rx Instructions: 15 UNITS PER SLIDING SCALE 3 TIMES DAILY. ondansetron 4 mg tablet,disintegrating 4 mg PO Q8H PRN (Reason: nausea and vomiting) Qty: 14 0RF hydrocodone-acetaminophen 7.5-325 mg tablet 1 tab PO Q6H Qty: 20 0RF dicyclomine 20 mg tablet 20 mg PO QID PRN (Reason: Cramps) Discharge Orders: Discharge ED (Routine); Ordered 02/27/24 Ordered By: Hang Soto Referrals: Patrica Baron, [employer] DEVELOP[employer] CONSULTANT [Primary Care Provider] - Discharge Diet: Usual diet Discharge Activity: Resume usual activity Patient Instructions: Abdominal Pain (ED), Opioid Safety, Pain Management Activity Restrictions/Additional Instructions: Activity Restrictions/Additional Instructions: Thank you for choosing [facility] for your healthcare needs today. Please realize that you were seen in the Emergency Department and that we are providing you with an emergency medical screening exam and this may not be a complete and all inclusive of all the testing and or medical work-up that you may need to determine your ailment or severity of your illness. It is very important that you follow-up as instructed with your Primary care provider or Specialist for additional evaluation and to discuss your medical treatment plan. Coding Level of Care Code ED Hand Violin Maker for Candy Chatterjee
[2024-02-26 23:42] LABS: Basophils # 0.1 10^3/uL (0.0-0.1); Basophils % 0.6 %; Eosinophils # 0.1 10^3/uL (0.0-0.8); Eosinophils % 0.6 %; Hematocrit 42.3 % (36-47); Lymphocytes # 2.2 10^3/uL (1.5-6.5); Lymphocytes % 15.5 %; Mean Corpuscular HGB Conc 34.3 g/dL (30-55); Mean Corpuscular Hemoglobin 28.6 pg (27-33); Mean Corpuscular Volume 83.4 fl (85-98); Mean Platelet Volume 8.9 fL (7.4-10.4); Monocytes # 0.8 10^3/uL (0.2-0.9); Monocytes % 5.3 %; Neutrophils % 77.4 %; Nucleated Red Blood Cells % 0 %; Platelet Count 345 10^3/cmm (157-399); Red Blood Count 5.07 10^6/uL (3.85-5.65); Red Cell Distribution Width 12.7 % (12.1-15.1); White Blood Count 14.43 10^3/uL (4.5-13.0)
[2024-02-26] MEDS: sodium chloride 0.9% 1,000 ML 999 ML IV (23:59)
[2024-02-26] MEDS: sennosides-docusate Tablet 2 TAB PO (23:59)
[2024-02-27] MEDS: dicyclomine 20 mg Tablet PO
[2024-02-27] MEDS: magnesium citrate Btl 296 mL PO (00:01)
[2024-02-27] MEDS: mineral oil ENEMA 133 mL PR (00:02)
[2024-02-27 00:03] LABS: Alanine Aminotransferase 14 U/L (0-33); Alkaline Phosphatase 98 U/L (35-105); Anion Gap 15.2 (5-19); Aspartate Amino Transferase 9 U/L (0-32); Blood Urea Nitrogen 8 mg/dL (6-20); Carbon Dioxide 22 mmol/L (22-29); Chloride 103 mmol/L (98-107); Creatinine Clr Calc Pharmacy 311.0972; Globulin 3.5 g/dL (1.3-4.6); Glomerular Filtration Rate 203.5 mL/min (90-130); Glucose 274 mg/dL (65-115); Lipase 14 U/L (13-60); Osmolality Calculated 290 mOsm/kg (285-295); Potassium 4.2 mmol/L (3.5-5.1); Sodium 136 mmol/L (136-145); Total Bilirubin 0.6 mg/dL (0.15-1.2); Total Protein 7.5 g/dL (6.6-8.7)
[2024-02-27] MEDS: glycerin adult supp 2 EACH PR (01:32)
[2024-02-27 02:13] VITALS: BP 143/91; PULSE 107; RESP 18; O2SAT 97
== END 2024-02-27 02:10 | disposition home or self-care (01) ==
PROVIDERS: Emergency Provider Internal Medicine; PCP Nurse Practitioner Family
DX: K59.00 Constipation, unspecified (principal); R10.9 Unspecified abdominal pain; Z79.4 Long term (current) use of insulin; Z79.84 Long term (current) use of oral hypoglycemic drugs; E11.9 Type 2 diabetes mellitus without complications
CPT/HCPCS: 80053; 83690; 85025; 96360; 99284; J7030

== ENCOUNTER 2024-03-04 14:05 | Outpatient (CLI) | payer BC, MEDICAID, SELFPAY ==
--- NOTE | 2024-03-04 14:00 | CT_ITS ---
WS: [id number] CT ABDOMEN AND PELVIS WITH AND WITHOUT CONTRAST HISTORY: R10.9 - Unspecified abdominal pain TECHNIQUE: Unenhanced 5 mm axial imaging first performed through the abdomen and pelvis. Post contras t imaging through the abdomen and pelvis. Oral contrast has not been provided. Sagittal and coronal reformats are submitted. All CT scans at [facility] use at least one of these dose optimizati on techniques: automated exposure control; mA and/or kV adjustment per patient size (includes targete d exams where dose is matched to clinical indication); or iterative reconstruction. CONTRAST: Omnipaque 350; 95 mL IV. DLP: 2090.73 mGy.cm COMPARISON: 05/21/2023, pelvic ultrasound 02/21/2024 Lung bases are clear. Normal size heart. No hiatal hernia. Liver is markedly enlarged with hepatic steatosis. No mass or bile duct dilatation. Gallbladder is sl ightly contracted which is probably due to a nonfasting state. Normal spleen. No adrenal mass. Normal pancreas. Normal adrenal glands. Both kidneys are enhancing symmetrically. There is no obstruction o r renal calcification. Normal aorta. No GI tract obstruction. Prior appendectomy. No small bowel obstruction. There are diverticula scatte red throughout the colon with no acute diverticulitis. There is no obstruction. No adenopathy or ascites. Uterus is midline. Small RIGHT ovarian cyst measures 3.6 x 2.6 cm. No destructive bone lesions. IMPRESSION: 1. No renal calcifications or obstruction. 2. Small simple ovarian cyst RIGHT adnexa measures 3.6 x 2.6 cm. 3. Very mild diffuse colonic diverticulosis without acute diverticulitis. 4. Prior appendectomy.
== END 2024-03-04 14:06 | disposition home or self-care (01) ==
LOC: RAD 14:05
PROVIDERS: PCP Nurse Practitioner Family; Visit Provider Obstetrics & Gynecology
DX: R10.9 Unspecified abdominal pain (principal); N83.201 Unspecified ovarian cyst, right side; K57.90 Diverticulosis of intestine, part unspecified, without perforation or abscess without bleeding
CPT/HCPCS: 74178; Q9967

== ENCOUNTER 2025-06-23 22:16 | Emergency (ER) | payer OTHER, SELFPAY ==
--- OUTSIDE RECORDS SUMMARY | 2025-06-23 22:21 | XMS_ITS | Clinical Summary ---
Author Organization [facility] Address [address] [facility] [place] [address] Phone Care Team Providers Care Meat Manager Name Role Phone Unavailable Primary Care Provider Unavailabl e Allergies Active Allergy Reactions Criticality Noted Date Comments Adhesive Tape-Silicones Rash Low 07/22/2022 Medications No known medications Social History Tobacco Use Types Packs/Day Years Used Date Smoking Tobacco: Never Smokeless Tobacco: Never Tobacco Cessation:Counseling Given: Not Answered Alcohol Use Standard Drinks/Week Comments Not Currently 0 (1 standard drink = 0.6 oz pur e alcohol) Comments Unknown Sex and Gender Information Value Date Recorded Sex Assigned at Not on file Legal Sex Female 10:33 PM CDT Gender Identity Not on file Sexual Orientation Not on file Last Filed Vital Signs Vital Sign Reading Time Taken Comments Blood Pressure 148/78 07/23/2022 12:27 AM CDT Pulse 110 07/23/2022 12:27 AM CDT Temperature 36.6 C (97.8 F) 07/22/2022 10:37 PM CDT Respiratory Rate 20 07/23/2022 12:27 AM CDT Oxygen Saturation 97% 07/22/2022 10:37 PM CDT Inhaled Oxygen Concentration - - Weight 117.9 kg (260 lb) 07/22/2022 10:37 PM CDT Height 180.3 cm (5' 11 ) 07/22/2022 10:37 PM CDT Body Mass Index 36.26 07/22/2022 10:37 PM CDT Plan of Treatment Not on file Insurance [place]ICAID [place] [employer] [place]
--- OUTSIDE RECORDS SUMMARY | 2025-06-23 22:21 | XMS_ITS | Clinical Summary ---
Author Organization [facility] Address [address] [place] [address] Phone Care Team Providers Care Structural Iron Erector Name Role Phone Unavailable Primary Care Provider Unavailabl e Medications insulin glargine (LANTUS) 100 unit/mL pen syringe Inject 40 Units by subcutaneous injection 2 times daily. Active insulin aspart U-100 (NovoLOG ECHO PENFILL) 100 unit/mL cartridge Inject by subcutaneous injection 1 time daily as needed for Blood Sugar (sliding scale with meals). Active pantoprazole (PROTONIX) 40 mg Tablet, Delayed Release (E.C.) Take 40 mg by mouth daily. Active gabapentin (NEURONTIN) 100 mg capsule Take 100 mg by mouth 3 times daily. Active glimepiride (AMARYL) 1 mg tablet Take 1 mg by mouth daily with breakfast. Active ondansetron (ZOFRAN) 4 mg Tablet Take 4 mg by mouth every 8 hours as needed for Nausea/Emesis. Active HYDROcodone-eloy taminophen (NORCO) 7.5-325 mg TabletIndicatio ns:Post-op pain Take 1 Tablet by mouth every 4 hours as needed for Pain. Max Daily Amount: 6 Tablets 20 Tablet 07/26/2023 7:03 PM CDT 3 Active dicyclomine (BENTYL) 20 mg tablet Take 1 Tablet (20 mg) by mouth 4 times daily. 90 Tablet 3 4 Active Active Problems Problem Noted Date Diagnosed Date Irritable bowel syndrome with diarrhea Acute appendicitis with loca lized peritonitis, without perforation, abscess, or gangrene 07/26/2023 Uncontrolled type 2 diabetes mellitus with hyper glycemia 07/26/2023 Ovarian cyst, left 07/12/2023 Yeast infection 07/12/2023 Type 2 diabetes mellitus wit h hyperglycemia, with long-term current use of insulin 07/12/2023 Pancolonic diverticulosis 07/12/2023 Acute cystitis with hematuria 07/12/2023 Family History Relation Name Status Comments Father Alive Mother Alive Social History Tobacco Use Types Packs/Day Years Used Date Smoking Tobacco: Never Tobacco Cessation:Counseling Given: Not Answered Alcohol Use Standard Drinks/Week Comments Never 0 (1 standard drink = 0.6 oz pur e alcohol) Comments No Sex and Gender Information Value Date Recorded Sex Assigned at Not on file Legal Sex Female 12:51 PM CDT Gender Identity Not on file Sexual Orientation Not on file Last Filed Vital Signs Vital Sign Reading Time Taken Comments Blood Pressure 125/71 07/26/2023 8:00 PM CDT Pulse 86 07/26/2023 8:00 PM CDT Temperature 36.3 C (97.4 F) 07/26/2023 6:57 PM CDT Respiratory Rate 14 07/26/2023 8:00 PM CDT Oxygen Saturation 96% 07/26/2023 8:00 PM CDT Inhaled Oxygen Concentration - - Weight 122.9 kg (271 lb) 07/26/2023 4:55 PM CDT Height 180.3 cm (5' 11 ) 07/26/2023 4:55 PM CDT Body Mass Index 37.8 07/26/2023 4:55 PM CDT Plan of Treatment Health Maintenance Due Date Last Done Comments CHLAMYDIA SCREENING (ANNUAL) 11-24 YEARS 2015 HPV VACCINES (1 - 3-dose series) 2019 DIABETES ANNUAL FOOT EXAM 2022 DIABETES ANNUAL RETINAL EXAM 2022 DIABETES MICROALBUMIN ANNUAL SCREEN 2022 LDL CHOLESTEROL ANNUAL 2022 DTAP/TDAP/TD VACCINES (1 - Tdap) 2023 HEPATITIS B VACCINES (1 of 3 - 19+ 3-dose series) 02/1 07/2023 DIABETES HBA1C Q 6 MONTHS 01/12/2024 07/12/2023 CERVICAL CANCER SCREENING 2025 HPV/Cotest (21-29) 2025 PAP SMEAR 2025 INFLUENZA VACCINE (#1) 2025 Procedures Procedure Name Priority Date/Time Associated Diagnosis Comments HEMOGLOBIN A1C Stat 07/12/2023 6:25 PM CDT from Last 3 Months or Most Recently Relevant to Health Maintenance Results * (ABNORMAL) HEMOGLOBIN A1C (07/12/2023 6:25 PM CDT) HEMOGLOBIN A1C 10.8(H) <=5.6 % 07/12/2023 6:55 PM CDT [facility] EST. AVG GLUCOSE, A1C 263 mg/dL 07/12/2023 6:55 PM CDT [facility] Blood Venipuncture / Unknown 07/12/2023 6:25 PM CDT 07/12/2023 6:32 PM CDT Narrative [facility] - 07/12/2023 6:55 PM CDT HGB A1C INTERPRETATION NORMAL: <5.7% PRE-DIABETES: 5.7 - 6.4% DIABETES: 6.5% OR GREATER David Abbott II, MD CHEMISTRY ORDERABLES Final Result [facility] CLIA # [id number] [address] [place] [address] from Last 3 Months or Most Recently Relevant to Health Maintenance [place] [address] MEDICAID RX WELLS PLANS (INTERNAL) [facility] Internal Plans Advance Directives For more information, please contact: [phone] * Full Code (Latest Code Status on File) Date Activated Date Inactivated Comments 07/26/2023 5:19 PM 07/26/2023 10:38 PM
--- OUTSIDE RECORDS SUMMARY | 2025-06-23 22:21 | XMS_ITS | Patient Health Record ---
Author Organization [facility] Address [address] [facility] [address] [address] [place] [address] Care Team Providers Care Budget Clerk Name Role Phone Senia Bowen Primary Care Provider [phone] Allergies Allergen (clinical drug ingredient) Drug/Non Drug Allergy documented on EMR Reaction Allergy Type Onset Date Status Adhesive RASH Allergy Active Reason For Referral No Information Medications Medication SIG (Take, Route, Fr equency, Duration) Notes Start Date End Date Status metFORMIN HCl 500 MG TAKE 1 TABLET TWICE DAILY for 90 Active Social History Tobacco Use: Social History Observation Description Date Details (start date - stop date) Never Smoker NA - NA Tobacco Use/Smoking Question Answer Notes Are you a: nonsmoker Alcohol Screen Question Answer Notes Did you have a drink containing alcohol in the p ast year? No Points 0 Interpretation Negative Problems Problem Type SNOMED Code ICD Code Onset Dates Problem Status W/U Status Risk Notes Problem [id number] DUB (dysfunctional uterine bleeding) (N93.8) Active confirmed Problem Dysfunctional uterine bleeding (41917697229589) Dysfunctional uterine bleeding (N93.8) Active confirmed Plan Of Treatment No Information Insurance Providers Payer Name Payer Address Payer Phone Subscriber Number Group Number Insured Name Patient Relationship to Insured Coverage Start Date Coverage End Date [employer]UE [address] [address] [place] [address] [id number] Marbella Coronel Self - patient is the insured [place] [address] [place] [address] [id number] Marbella Coronel Self - patient is the insured Medications Administered Medication Instructions Date of Administration Dosage Notes Depo Provera 06/18/2022 150 mg Medical (General) History Medical History History ICD Code HTN Surgical History Surgery Date(Month/Year)
--- OUTSIDE RECORDS SUMMARY | 2025-06-23 22:21 | XMS_ITS | Patient Health Record ---
Author Organization [facility] Address [address] [place] [address] Care Team Providers Care Galley Worker Name Role Phone No, PCP Primary Care Provider UnavailKobe Garcia Unavailable [phone] Samy Salamanca Unavailable [phone] Allergies No Known Allergies Results Component Value Reference Range Notes Influenza A+B Ag, EIA Reviewed date:01/13/2025 09:53:08 AM Interpretation: Performing Lab: Notes/Report: Influenza A Ag, EIA neg Influenza B Ag, EIA neg Covid Reviewed date:01/13/2025 09:53:36 AM Interpretation:Negative Performing Lab: Notes/Report: Negative Reason For Referral No Information Medications Medication SIG (Take, Route, Fr equency, Duration) Notes Start Date End Date Status Ondansetron 4 MG 1 tablet on the tong ue and allow to dissolve Orally Every 8 hours 01/13/2025 Ac tive Tamiflu 75 MG 1 capsule Orally Twi ce a day; Duration: 5 day(s) 01/13/2025 Active Vital Signs Heart Rate 106 /min 01/13/2025 Temperature 98.4 degrees Fahrenheit 01/13/2025 Oximetry 98 % 01/13/2025 Blood pressure diastolic 40 mm Hg 01/13/2025 Blood pressure systolic 139 mm Hg 01/13/2025 Encounters Encounter Location Date Provider Diagnosis [facility] [place] [place] [address] 01/13/2025 Samy Salamanca Influenza J11.1 Assessments Encounter Date Diagnosis (ICD Code) Assessment Notes Treatment Notes Treatment Clinical Notes Section Notes 01/13/2025 Influenza (ICD-10 - J11.1) 01/13/2025 Other Lab testing is negative for influenza, however I suspect the patient does have influenza given her flu-like symptoms. We are experiencing I volumes of influenza a in his area at this time. I suspect the test is negative because her symptoms began last night and she is not yet shedding the virus. I will provide a clinical diagnosis of influenza and prescribe a course of Tamiflu. Plan Of Treatment No Information Insurance Providers Payer Name Payer Address Payer Phone Subscriber Number Group Number Insured Name Patient Relationship to Insured Coverage Start Date Coverage End Date [facility] [address] [place], [place] [id number] [phone] [id number] Marbella Coronel Self - patient is the insured
[2025-06-23 22:25] VITALS: BP 137/84; PULSE 139; RESP 16; TEMP 36.8; O2SAT 98
--- NOTE | 2025-06-23 23:01 | ECG_ITS ---
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 Measurements Intervals [place] Rate: 135 P: 83 CT: 183 QRS: 48 QRSD: 88 T: 33 QT: 331 QTc: 496 Interpretive Statements SINUS TACHYCARDIA POSSIBLE ANTERIOR MYOCARDIAL INFARCTION , PROBABLY OLD [30 ms Q WAVE IN V3/V4, OR R < 0.2 mV IN V4] ABNORMAL RHYTHM ECG Compared to ECG 02/09/2024 10:02:09 Myocardial infarct finding now present Electronically Signed On 06-25-2025 13:55:01 CDT by Yon Talley M.D. [id number]
[2025-06-23 23:02] VITALS: BP 137/94; PULSE 143; RESP 16; O2SAT 98
--- NOTE | 2025-06-23 23:12 | W.ED.ARRPALP ---
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 She does not drink caffeine, or energy drinks. She has not changed her diet. This has not happened in some time when she had come to the ED. She has been compliant to her metoprolol as needed. She was off tonight, got called in, and her heart rate started racing at work. She came over to the emergency room with these complaints. Associated symptoms: Deny anxiety, nausea or vomiting Related Data Home Medications ?Medication ?Instructions ?Recorded ?Confirmed metoprolol tartrate 25 mg tablet 25 mg PO DAILY PRN Heart rate more 01/13/24 03/03/24 than 110 bpm insulin aspart U-100 100 unit/mL See Rx Instructions .Route .COMPLEX 02/09/24 03/03/24 (3 mL) subcutaneous pen (Novolog FlexPen U-100 Insulin aspart) Previous Rx's ?Medication ?Instructions ?Recorded lancets (Comfort Lancets) #100 ea 08/22/22 blood-glucose meter #1 ea 01/30/23 pen needle, diabetic 33 gauge x #100 ea 04/24/23/ (Easy Comfort Pen Woodland) metoprolol tartrate 75 mg tablet 75 mg PO BID #60 tabs 01/13/24 blood sugar diagnostic (Blood #50 ea 01/30/24 Glucose Test strips) insulin glargine 100 unit/mL (3 45 unit (0.45 mL) SUBCUT BID 30 01/30/24 mL) subcutaneous pen (Lantus days #27 mL Solostar U-100 Insulin) metformin 500 mg tablet See Rx Instructions .Route 02/26/24 .COMPLEX #60 tabs metoprolol succinate 25 mg 25 mg PO DAILY #30 tabs 06/23/25 tablet,extended release 24 hr Allergies Allergy/AdvReac Type Severity Reaction Status Date / Time No Known Allergies Allergy Verified 03/03/24 13:03 Review of Systems Eyes: Denies: change in vision or blurry vision ENMT: Denies: throat pain or mouth pain Card: Reports: chest pain and palpitations Resp: Reports: dyspnea; Denies: non-productive cough GI: Denies: abdominal pain, nausea or vomiting : Denies: flank pain or difficulty voiding Musc: Denies: neck pain, back pain or extremity pain Skin/Breast: Denies: rash or pruritus Neuro: Denies: headache(s) or numbness in extremities Psych: Denies: anxiety or depression [facility] ED PFSH: Medical History (Updated 06/23/25 @ 23:38 by REESE Cates) Tachyarrhythmia Family history of porphyria Family history of [place] disease Irritable bowel syndrome Fatty liver Type 2 diabetes mellitus Surgical History History of appendectomy Family History Mother Colon cancer, Onset Age: 40 Heart disease Other Diabetes Hypertension Denies family history of Ovarian cancer Prostate cancer Hypercholesteremia Breast cancer Uterine cancer Thyroid disease Stroke Female Reproductive History: Date of last menstrual period: 05/29/25 Physical Exam Const: COMMON NORMALS: no acute distress, average body habitus and patient oriented x3 HENMT: COMMON NORMALS: normocephalic and atraumatic HEAD & SCALP: normocephalic and atraumatic Lymph: LYMPHATIC: no lymphadenopathy noted Chest: COMMONS NORMALS: normal inspection of the chest and normal palpation of entire chest wall Resp: COMMON NORMALS: clear to auscultation bilaterally EFFORT & INSPECTION: Yes symmetric chest movement and Yes tachypneic AUSCULTATION: clear to auscultation bilaterally Cardio: COMMON NORMALS: regular rate and regular rhythm RATE: regular rate RHYTHM: regular rhythm GI: COMMON NORMALS: Normal to inspection, nondistended, normoactive bowel sounds present and non-tender : COMMON NORMALS: Yes no CVA tenderness BLADDER/KIDNEY EXAM: Yes no CVA tenderness Back/Pelvis: COMMON NORMALS: no CVA tenderness Extremity: COMMON NORMALS: normal to inspection, full ROM and capillary refill normal Neuro: COMMON NORMALS: patient oriented x3, CN's II-XII intact bilaterally and moves all extremities Psych: COMMON NORMALS: mental status grossly normal, Normal thought process present and cooperative THOUGHT PROCESS: Normal thought process present Course Vital Signs: Vital signs: Vital Signs Temperature 98.2 F 06/23/25 22:25 Pulse Rate 82 06/23/25 23:54 Respiratory Rate 16 06/23/25 23:54 Blood Pressure 108/75 06/23/25 23:54 Pulse Oximetry 99 06/23/25 23:54 Oxygen Delivery Me thod Room Air 06/23/25 23:02 MDM - Arrhythmia/Palpitations Medical Decision Making Patient's heart rate decreased to high 90s/low 100s after metoprolol IV push 5 mg x 1. Will repeat, and give metoprolol succinate x 1. She desires to go back to work on her shift at [employer] [facility] [employer], and not wait on her labs. Will discharge her at her request. She will follow-up with her actuarial science teacher and primary care physician. I did attempt to call her to have her drink another liter of noncaffeinated beverages. She does have access to the portal. Her hemoglobin is slightly up from previous, and her platelets. Typically with the weather being in the 90s, this is a associated with hypovolemia. 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 Patient will follow-up with primary care. I do suspect a association of Bundles and reentry tachycardia. Her echocardiogram showed mild mitral regurgitation without prolapse. I have sent metoprolol succinate to the pharmacy to continue on a daily basis while awaiting follow-up. Medical Records I reviewed the patient's medical records. Lab Data I reviewed the patient's lab results. 06/23/25 23:30 06/23/25 23:30 Laboratory Results WBC 12.92 10^3/uL (3.29-11.43) H 06/23/25 23:30 RBC 5.81 10^6/uL (3.85-5.65) H 06/23/25 23:30 Hgb 15.50 g/dL (11.27-16.99) 06/23/25 23:30 Hct 45.6 % (36-47) 06/23/25 23:30 MCV 78.5 fl (85-98) L 06/23/25 23:30 MCH 26.7 pg (27-33) L 06/23/25 23: MCHC 34.0 g/dL (30-55) 06/23/25 23:30 RDW 13.2 % (12.1-15.1) 06/23/25 23:30 Plt Count 403 10^3/cmm (157-399) H 06/23/25 23:30 MPV 9.3 fL (7.4-10.4) 06/23/25 23:30 Neut % (Auto) 66.2 % 06/23/25 23: Lymph % (Auto) 26.2 % 06/23/25 23: Holt % (Auto) 5.3 % 06/23/25 23: Eos % (Auto) 1.5 % 06/23/25 23: Baso % (Auto) 0.6 % 06/23/25 23: Neut # (Auto) 8.54 10^3/uL (1.8-7.7) H 06/23/25 23: Lymph # (Auto) 3.4 10^3/uL (0.8-4.8) 06/23/25 23: Holt # (Auto) 0.7 10^3/uL (0.2-0.9) 06/23/25 23: Eos # (Auto) 0.2 10^3/uL (0.0-0.8) 06/23/25 23: Baso # (Auto) 0.1 10^3/uL (0.0-0.1) 06/23/25 23: Nucleated RBC % (auto) 0 % 06/23/25: Nucleated RBCs # 0.0 /100WBC 06/23/25 23:30 Sodium 132 mmol/L (136-145) L 06/23/25 23: Potassium 4.0 mmol/L (3.5-5.1) 06/23/25 23: Chloride 98 mmol/L (98-107) 06/23/25 23: Carbon Dioxide 20 mmol/L (22-29) L 06/23/25 23: Anion Gap 18.0 (5-19) 06/23/25 23: BUN 12 mg/dL (6-20) 06/23/25 23: Creatinine 0.5 mg/dL (0.5-0.9) 06/23/25 23:30 GFR Calculation 155.7 mL/min (90-130) H 06/23/25 23:30 Glucose 295 mg/dL (65-115) H 06/23/25 23:30 Calculated Osmolality 285 mOsm/kg (285-295) 06/23/25 23:30 Calcium 9.6 mg/dL (8.5-10.5) 06/23/25 23:30 Magnesium 1.8 mg/dL (1.7-2.3) 06/23/25 23:30 Total Bilirubin 0.5 mg/dL (0.15-1.2) 06/23/25 23:30 AST 11 U/L (0-32) 06/23/25 23:30 ALT 12 U/L (0-33) 06/23/25 23:30 Alkaline Phosphatase 126 U/L (35-105) H 06/23/25 23:30 Total Protein 8.4 g/dL (6.6-8.7) 06/23/25 23:30 Albumin 4.6 g/dL (3.5-5.2) 06/23/25 23:30 Globulin 3.8 g/dL (1.3-4.6) 06/23/25 23:30 TSH 1.91 uIU/mL (0.27-4.20) 06/23/25 23:30 No radiology studies performed this visit EKG Data EKG 1: Interpretation: svt Discharge Plan Discharge Patient Disposition: Home Clinical Impression: Atrial tachycardia Condition: Stable Prescriptions: New metoprolol succinate 25 mg tablet extended release 24 hr 25 mg PO DAILY Qty: 30 0RF No Action (DME) blood-glucose meter Misc See Rx Instructions .Route Qty: 1 0RF Rx Instructions: As directed testing once daily (DME) pen needle, diabetic [Easy Comfort Pen Woodland] 33 gauge x 5/32 needle See Rx Instructions .Route Qty: 100 1RF Rx Instructions: As directed metoprolol tartrate 25 mg tablet 25 mg PO DAILY PRN (Reason: Heart rate more than 110 bpm) metoprolol tartrate 75 mg tablet 75 mg PO BID Qty: 60 3RF (DME) Blood Glucose Test Strip See Rx Instructions .Route Qty: 50 5RF Rx Instructions: testing 4 times daily Lantus Solostar U-100 Insulin 100 unit/mL (3 mL) insulin pen 45 unit SUBCUT BID 30 Days Qty: 27 3RF (DME) lancets [Comfort Lancets] Misc See Rx Instructions .Route Qty: 100 1RF Rx Instructions: As directed testing once daily metformin 500 mg tablet See Rx Instructions .ROUTE .COMPLEX Qty: 60 0RF Dose Instruction: TAKE 1 TABLET BY MOUTH TWICE DAILY Rx Instructions: TAKE 1 TABLET BY MOUTH TWICE DAILY insulin aspart U-100 [Novolog FlexPen U-100 Insulin] 100 unit/mL (3 mL) insulin pen See Rx Instructions .ROUTE .COMPLEX Rx Instructions: 15 UNITS PER SLIDING SCALE 3 TIMES DAILY. Discharge Orders: Discharge ED (Routine); Ordered 06/23/25 Ordered By: Damari Bruno Discharge Diet: Usual diet Discharge Activity: Resume usual activity Patient Instructions: Atrial Tachycardia (ED), Patient Portal & Tushar Instructions Activity Restrictions/Additional Instructions: Continue the no caffeine or stimulant diet/intake Call your primary care physician, and actuarial science teacher to follow-up tomorrow Metoprolol succinate was sent to [facility]. Take daily. Return to ED with further issues Print Language: Welsh Coding Level of Care Code ED Edm Operator for Candy Chatterjee
[2025-06-23] MEDS: metoprolol tartrate 1 mg/1 mL SDV 5 mL 5 MG IVP ×2 (23:30→23:35)
[2025-06-23 23:37] LABS: Hematocrit 45.6 % (36-47); Hemoglobin 15.50 g/dL (11.27-16.99); Mean Corpuscular HGB Conc 34.0 g/dL (30-55); Mean Corpuscular Hemoglobin 26.7 pg (27-33); Mean Corpuscular Volume 78.5 fl (85-98); Nucleated Red Blood Cells % 0 %; Platelet Count 403 10^3/cmm (157-399); Red Blood Count 5.81 10^6/uL (3.85-5.65); White Blood Count 12.92 10^3/uL (3.29-11.43)
[2025-06-23] MEDS: metoprolol succinate ER (24 HR) 25 mg Tablet PO (23:45)
[2025-06-23 23:54] VITALS: BP 108/75; PULSE 82; RESP 16; O2SAT 99
[2025-06-24 00:07] LABS: Alanine Aminotransferase 12 U/L (0-33); Albumin Level 4.6 g/dL (3.5-5.2); Alkaline Phosphatase 126 U/L (35-105); Anion Gap 18.0 (5-19); Aspartate Amino Transferase 11 U/L (0-32); Blood Urea Nitrogen 12 mg/dL (6-20); Calcium 9.6 mg/dL (8.5-10.5); Carbon Dioxide 20 mmol/L (22-29); Chloride 98 mmol/L (98-107); Creatinine Clr Calc Pharmacy 245.7844; Globulin 3.8 g/dL (1.3-4.6); Glucose 295 mg/dL (65-115); Magnesium 1.8 mg/dL (1.7-2.3); Osmolality Calculated 285 mOsm/kg (285-295); Potassium 4.0 mmol/L (3.5-5.1); Sodium 132 mmol/L (136-145); Thyroid Stimulating Hormone 1.91 uIU/mL (0.27-4.20); Total Protein 8.4 g/dL (6.6-8.7)
== END 2025-06-23 23:55 | disposition home or self-care (01) ==
PROVIDERS: Emergency Provider Physician Assistant
DX: I47.19 Other supraventricular tachycardia (principal); Z79.84 Long term (current) use of oral hypoglycemic drugs; Z79.4 Long term (current) use of insulin; E11.9 Type 2 diabetes mellitus without complications
CPT/HCPCS: 80053; 83735; 84443; 85025; 93005; 96374; 99284; J3490; J9999

== ENCOUNTER 2025-07-23 18:54 | Emergency (ER) | payer OTHER, SELFPAY ==
[2025-07-23 18:55] VITALS: BP 152/93; PULSE 120; RESP 16; TEMP 36.6; O2SAT 100; BMI 33.5
--- OUTSIDE RECORDS SUMMARY | 2025-07-23 18:58 | XMS_ITS | Clinical Summary ---
Author Organization [facility] Address [address] [place] [address] Phone Care Team Providers Care Electric Refrigerator Servicer Name Role Phone Unavailable Primary Care Provider [...] drink = 0.6 oz pur e alcohol) Adolescent Education Answer Date Record ed Getting School Help Needed Not on file 06/23 Feeling Safe Answer Date Recorded Are you in a relationship wi th someone who hurts you emotionally and/or physically? No 07/26/2023 Comments No Sex and Gender Information Value [...] (1 of 3 - 19+ 3-dose series) 12/19 DIABETES HBA1C Q 6 MONTHS 01/12/2024 07/12/2023 [...] 10.8(H) <=5.6 % 07/12/2023 6:55 PM CDT [facility] EST. AVG GLUCOSE, A1C 263 mg/dL 07/12/2023 6:55 PM CDT [facility] Blood Venipuncture / Unknown 07/12/2023 6:25 PM CDT 07/12/2023 6:32 PM CDT Narrative [facility] - 07/12/2023 6:55 PM CDT HGB A1C INTERPRETATION NORMAL: <5.7% PRE-DIABETES: 5.7 - 6.4% DIABETES: 6.5% OR GREATER David Abbott II, MD CHEMISTRY ORDERABLES Final Result [facility] CLIA # [id number] [address] [place] [address] from Last 3 Months or Most Recently Relevant to Health Maintenance Insurance [facility] MEDICAID RX WELLS PLANS (INTERNAL) [facility] Internal Plans Advance Directives For more information, please contact: [phone] * Full Code (Latest Code Status on File) Date Activated Date Inactivated Comments 07/26/2023 5:19 PM 07/26/2023 10:38 PM
--- OUTSIDE RECORDS SUMMARY | 2025-07-23 18:58 | XMS_ITS | Clinical Summary ---
Author Organization [facility] Address [address] [facility] [place] [address] Phone Care Team Providers Care Reticle Printer Name Role Phone Unavailable Primary Care Provider [...]
--- OUTSIDE RECORDS SUMMARY | 2025-07-23 18:58 | XMS_ITS | Patient Health Record ---
Author Organization [facility] Address [address] [place] [address] Care Team Providers Care Financial Analyst Accountant Name Role Phone No, PCP Primary Care Provider UnavailKobe Garcia Unavailable [phone] Samy Salamanca Unavailable [phone] Allergies No Known Allergies Results Component Value [...] Diagnosis [facility] [place] [place] [address] 01/13/2025 Samy Salamanca Influenza J11.1 Assessments Encounter [...] Insured Coverage Start Date Coverage End Date [facility] [address] [place], [place] [id number] Marbella Coronel Self - patient is the insured
--- OUTSIDE RECORDS SUMMARY | 2025-07-23 18:58 | XMS_ITS | Patient Health Record ---
Author Organization [facility] Address [address] [facility] [address] [place] [address] Care Team Providers Care Stars Coordinator Name Role Phone Senia Bowen Primary Care Provider Allergies Allergen (clinical drug ingredient) Drug/Non Drug [...] Problem Status W/U Status Risk Notes Problem [id number] DUB (dysfunctional uterine bleeding) (N93.8) Active confirmed Problem Dysfunctional uterine bleeding ([id number]) Dysfunctional uterine bleeding (N93.8) Active confirmed Plan Of Treatment No Information Insurance Providers Payer Name Payer Address Payer Phone Subscriber Number Group Number Insured Name Patient Relationship to Insured Coverage Start Date Coverage End Date [employer] [address] [address] [place] [address] [id number] Marbella Coronel Self - patient is the insured [place] [address] [place] [address] [phone] [id number] Marbella Coronel Self - patient is the insured Medications Administered Medication Instructions Date of Administration Dosage Notes Depo Provera 06/18/2022 150 mg Medical (General) History Medical History History ICD Code HTN Surgical History Surgery Date(Month/Year)
--- NOTE | 2025-07-23 19:10 | ED_ITS ---
HPI - Arrhythmia/Palpitations General: Chief Complaint: Arrhythmia/Palpitations Stated Complaint: SVT hr 180 Time Seen by Provider: 07/23/25 19:02 History of Present Illness: Patient is a 20-year-old female with a history of supraventricular tachycardia (SVT) who presents to the emergency department after experiencing tachycardia and shortness of breath when walking from her car to work. She reports her heart rate was 170 bpm at that time, prompting her stop to the ED. The patient states this is a recurrent issue that 'happens all the time' and typically occurs in episodes lasting for days before resolving. She notes that her symptoms are fine when sitting but worsen with activity. 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 She has approximately 4-5 pills remaining and needs a refill. The patient mentions she is trying to find a primary care physician but has encountered difficulties. She believes her condition may be due to an 'electrical miscommunication' in her heart and is working on getting a referral to a specialist in [place], though she describes this process as challenging. Related Data Home Medications ?Medication ?Instructions ?Recorded ?Confirmed insulin aspart U-100 100 unit/mL See Rx Instructions . Route .COMPLEX 02/09/24 03/03/24 (3 mL) subcutaneous pen (Novolog FlexPen U-100 Insulin aspart) Previous Rx's ?Medication ?Instructions ?Recorded lancets (Comfort Lancets) #100 ea 08/22/22 blood-glucose meter #1 ea 01/30/23 pen needle, diabetic 33 gauge x #100 ea 04/24/23 (Easy Comfort Pen [place]) blood sugar diagnostic (Blood #50 ea 01/30/24 Glucose Test strips) insulin glargine 100 unit/mL (3 45 unit (0.45 mL) SUBC UT BID 30 01/30/24 mL) subcutaneous pen (Lantus days #27 mL Solostar U-100 Insulin) metformin 500 mg tablet See Rx Instructions .Route 0 02/26/24 .COMPLEX #60 tabs metoprolol tartrate 25 mg tablet 25 mg PO BID #60 tabs 07/23/25 Allergies Allergy/AdvReac Type Severity Reaction Status Date / Time No Known Allergies Allergy Verified 03/03/24 13:03 PENDING SALE TO [facility] ED PFSH: Medical History Tachyarrhythmia Family history of porphyria Family history of Jin disease Irritable bowel syndrome Fatty liver Type 2 diabetes mellitus Surgical History History of appendectomy Family History Mother Colon cancer, Onset Age: 40 Heart disease Other Diabetes Hypertension Denies family history of Ovarian cancer Prostate cancer Hypercholesteremia Breast cancer Uterine cancer Thyroid disease Stroke Physical Exam Const: GENERAL APPEARANCE: cooperative; not ill appearing and not frail appearing HENMT: COMMON NORMALS: normocephalic, atraumatic and Normal external nose present HEAD & SCALP: normocephalic and atraumatic FACE & SINUS: normal facial exam and face symmetric NOSE: Normal external nose present Eye: COMMON NORMALS: Equal, round and reactive pupils present and EOMs intact bilaterally PUPIL: Yes Equal, round and reactive pupils present Neck/C-Spine: GENERAL: Yes trachea midline Chest: CHEST: Yes Symmetrical chest wall rise Resp: COMMON NORMALS: normal respiratory effort, No retractions, No use of accessory muscles and clear to auscultation bilaterally AUSCULTATION: clear to auscultation bilaterally Cardio: COMMON NORMALS: regular rhythm RATE: tachycardic RHYTHM: regular rhythm Neuro: [place] SCALE: document GCS findings [place] coma scale eye opening: Spontaneous [place] coma scale verbal response: Orientated [place] coma scale motor response: Obey commands [place] coma scale total score: 15 SENSORY EXAM: Yes extremities (intact) Psych: COMMON NORMALS: speech normal SPEECH: Yes normal speech Skin: COMMON NORMALS: no rashes or lesions noted GENERAL SKIN EXAM: no rashes or lesions noted Course Vital Signs: Vital signs: Vital Signs Temperature 97.8 F 07/23/25 18:55 Pulse Rate 120 H 07/23/25 18:55 Respiratory Rate 16 07/23/25 18:55 Blood Pressure 152/93 07/23/25 18:55 Pulse Oximetry 100 07/23/25 18:55 Oxygen Delivery Me thod Room Air 07/23/25 18:55 MDM - Arrhythmia/Palpitations Medical Decision Making Patient presents, but now that heart rate is improved, she wishes to go home. She has metoprolol at home for rate control. She asks about taking the not extended release, so that she has more options to control her own heart rate. 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 She has an ability to take her heart rate and blood pressure at home. She promises to continue her hydration, rest, and improve at home. If she does not improve on her own, she will return. She declined any laboratory or further workup this evening. No radiology studies performed this visit Discharge Plan Discharge Patient Disposition: Home Clinical Impression: Tachyarrhythmia Condition: Stable Prescriptions: New metoprolol tartrate 25 mg tablet 25 mg PO BID Qty: 60 1RF Discontinued metoprolol tartrate 25 mg tablet 25 mg PO DAILY PRN (Reason: Heart rate more than 110 bpm) metoprolol tartrate 75 mg tablet 75 mg PO BID Qty: 60 3RF metoprolol succinate 25 mg tablet extended release 24 hr 25 mg PO DAILY Qty: 30 0RF No Action (DME) blood-glucose meter Misc See Rx Instructions .Route Qty: 1 0RF Rx Instructions: As directed testing once daily (DME) pen needle, diabetic [Easy Comfort Pen [place]] 33 gauge x 5/32 needle See Rx Instructions .Route Qty: 100 1RF Rx Instructions: As directed (DME) Blood Glucose Test Strip See Rx Instructions .Route Qty: 50 5RF Rx Instructions: testing 4 times daily Lantus Solostar U-100 Insulin 100 unit/mL (3 mL) insulin pen 45 unit SUBCUT BID 30 Days Qty: 27 3RF (DME) lancets [Comfort Lancets] Misc See Rx Instructions .Route Qty: 100 1RF Rx Instructions: As directed testing once daily metformin 500 mg tablet See Rx Instructions .ROUTE .COMPLEX Qty: 60 0RF Dose Instruction: TAKE 1 TABLET BY MOUTH TWICE DAILY Rx Instructions: TAKE 1 TABLET BY MOUTH TWICE DAILY insulin aspart U-100 [Novolog FlexPen U-100 Insulin] 100 unit/mL (3 mL) insulin pen See Rx Instructions .ROUTE .COMPLEX Rx Instructions: 15 UNITS PER SLIDING SCALE 3 TIMES DAILY. Discharge Orders: Discharge ED (Routine); Ordered 07/23/25 Ordered By: Marcellus Dai Patient Instructions: Tachycardia (ED), Opioid Safety, Pain Management, Patient Portal & [place] Instructions Activity Restrictions/Additional Instructions: Medication as directed. Drink plenty of clear liquids. Return for any problems. Follow-up with your doctor. Print Language: [place] Coding Level of Care Code ED Rough Rib Grader for Candy Chatterjee
--- NOTE | 2025-07-24 10:41 | ECG_ITS ---
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
== END 2025-07-23 19:31 | disposition home or self-care (01) ==
PROVIDERS: Emergency Provider Emergency Medicine
DX: I47.10 Supraventricular tachycardia, unspecified (principal); Z79.4 Long term (current) use of insulin; E11.9 Type 2 diabetes mellitus without complications
CPT/HCPCS: 99283